=== PATIENT | female | born 1965 | race Caucasian/White ===

== ENCOUNTER 2017-01-30 13:59 | Emergency (ER) | payer MEDICAID ==
[~2017-01-30] VITALS: Ht 175.3 cm; Wt 145.9 kg
[~2017-01-30 13:59] MED LIST: ACET-1757 PO; ALBU2.5V11 NEB; AMOX1TAB64 PO; ASPI-621 PO; BISA10SU2 PR; BUDE10.2 INH; BUDE10.2 PO; CEPH-376 PO; CIPR500T87 PO; CLON0.5T PO; DOCU-30 PO; ENOX40SY4 SQ; ERTA1VIA IV; FLUC200T PO; GABA300C10 PO; GABA400C PO; HYDR12.58 PO; HYDR25TA6 PO; INSU100C5 SQ-INSULIN; INSU100I28 SQ-INSULIN; INSU100V5 SQ-INSULIN; INSU100V8 SQ; LISI40TA PO; LISI5TAB7 PO; LUBI8CAP3 PO; MERO1VIA3 IV; METF10002 PO; METH5TAB2 PO; NYST15PO9 TP; ONDA4TAB7 PO; OXYC-229 PO; OXYC-302 PO; OXYC1TAB7 PO; OXYC5TAB2 PO; PIPE4.5V6 IV; POLY17PO5 PO; ROSU20TA PO; ROSU40TA PO; ROSU5TAB PO; SERT100T PO; SITA100T PO; SULF1TAB23 PO; SULF1TAB3 PO; TIOT18CA INH; TIZA2CAP2 PO; TIZA2TAB PO
[2017-01-30 14:02] VITALS: BP 153/93
[2017-01-30 14:31] LABS: HEMOGLOBIN 13.2 g/dL (11.7-16.4)
[2017-01-30 14:42] LABS: BLOOD UREA NITROGEN 13 mg/dL (7-18)
== END 2017-01-30 18:18 | disposition left against medical advice (07) ==
LOC: ED 18:12
DX: M79.662 Pain in left lower leg (principal)
CPT/HCPCS: 36415; 80048; 82040; 85025

== ENCOUNTER 2017-04-01 19:20 | Emergency (ER) | payer MEDICAID ==
[~2017-04-01] VITALS: Ht 177.8 cm; Wt 145.5 kg
[~2017-04-01 19:20] MED LIST changes: +MERO1VIA15 IV; -MERO1VIA3 IV
[2017-04-01 19:24] VITALS: BP 169/87
[2017-04-01] MEDS ORDERED: LANTIS (19:54)
[2017-04-01] MEDS ORDERED: LISI40TA PO (19:54)
[2017-04-01] MEDS ORDERED: ONDANSETRON ODT 4 MG ONE (20:28)
[2017-04-01] MEDS ORDERED: ONDANSETRON ODT 4 MG PO ONE (20:30)
[2017-04-01 20:46] LABS: BLOOD UREA NITROGEN 13 mg/dL (7-18)
== END 2017-04-01 21:42 | disposition home or self-care (01) ==
LOC: ED 21:22
DX: S90.32XA Contusion of left foot, initial encounter (principal); E11.621 Type 2 diabetes mellitus with foot ulcer; I10 Essential (primary) hypertension; J44.9 Chronic obstructive pulmonary disease, unspecified; E78.5 Hyperlipidemia, unspecified; Z87.891 Personal history of nicotine dependence; X58.XXXA Exposure to other specified factors, initial encounter; Y93.89 Activity, other specified; Y99.8 Other external cause status; Y92.89 Other specified places as the place of occurrence of the external cause
CPT/HCPCS: 36415; 73630; 80048; 82040; 85025; 99285; Q0162

== ENCOUNTER → 2017-04-07 | Outpatient (CLI) | payer MEDICAID ==
[~2017-04-07] MED LIST changes: +LANTIS
== END | disposition home or self-care (01) ==
LOC: WOUND 12:41
PROVIDERS: ATTEND Surgery
DX: E11.621 Type 2 diabetes mellitus with foot ulcer (principal); L97.521 Non-pressure chronic ulcer of other part of left foot limited to breakdown of skin; L97.511 Non-pressure chronic ulcer of other part of right foot limited to breakdown of skin; J44.9 Chronic obstructive pulmonary disease, unspecified; E66.01 Morbid (severe) obesity due to excess calories; I10 Essential (primary) hypertension; E78.5 Hyperlipidemia, unspecified; Z68.43 Body mass index [BMI] 50.0-59.9, adult; E78.00 Pure hypercholesterolemia, unspecified; F41.9 Anxiety disorder, unspecified; F11.20 Opioid dependence, uncomplicated; Z87.891 Personal history of nicotine dependence; Z89.421 Acquired absence of other right toe(s)
CPT/HCPCS: 11042; 99215

== ENCOUNTER → 2017-04-10 | Outpatient (CLI) | payer MEDICAID | END | disposition home or self-care (01) | LOC: WOUND 15:27 | PROVIDERS: ATTEND Surgery | DX: E11.621 Type 2 diabetes mellitus with foot ulcer (principal); L97.521 Non-pressure chronic ulcer of other part of left foot limited to breakdown of skin; J44.9 Chronic obstructive pulmonary disease, unspecified; E66.01 Morbid (severe) obesity due to excess calories; Z68.43 Body mass index [BMI] 50.0-59.9, adult; I10 Essential (primary) hypertension; E78.5 Hyperlipidemia, unspecified; F11.20 Opioid dependence, uncomplicated; F41.9 Anxiety disorder, unspecified; E78.00 Pure hypercholesterolemia, unspecified; Z87.891 Personal history of nicotine dependence; Z89.421 Acquired absence of other right toe(s) | CPT/HCPCS: 99214 ==

== ENCOUNTER → 2017-04-17 | Outpatient (CLI) | payer MEDICAID | END | disposition home or self-care (01) | LOC: WOUND 12:45 | PROVIDERS: ATTEND Internal Medicine Cardiovascular Disease | DX: E11.621 Type 2 diabetes mellitus with foot ulcer (principal); L97.511 Non-pressure chronic ulcer of other part of right foot limited to breakdown of skin; L97.521 Non-pressure chronic ulcer of other part of left foot limited to breakdown of skin; J44.9 Chronic obstructive pulmonary disease, unspecified; E66.01 Morbid (severe) obesity due to excess calories; Z68.43 Body mass index [BMI] 50.0-59.9, adult; I10 Essential (primary) hypertension; E78.5 Hyperlipidemia, unspecified; F41.1 Generalized anxiety disorder; F11.20 Opioid dependence, uncomplicated; E78.00 Pure hypercholesterolemia, unspecified; Z87.891 Personal history of nicotine dependence; Z89.421 Acquired absence of other right toe(s) | CPT/HCPCS: 99214 ==

== ENCOUNTER → 2017-04-24 | Outpatient (CLI) | payer MEDICAID | END | disposition home or self-care (01) | LOC: WOUND 11:04 | PROVIDERS: ATTEND Physician Assistant | DX: E11.621 Type 2 diabetes mellitus with foot ulcer (principal); L97.521 Non-pressure chronic ulcer of other part of left foot limited to breakdown of skin; E66.01 Morbid (severe) obesity due to excess calories; E78.5 Hyperlipidemia, unspecified; I10 Essential (primary) hypertension; J44.9 Chronic obstructive pulmonary disease, unspecified; Z68.43 Body mass index [BMI] 50.0-59.9, adult; F41.9 Anxiety disorder, unspecified; F11.20 Opioid dependence, uncomplicated; Z87.891 Personal history of nicotine dependence; Z89.421 Acquired absence of other right toe(s); E78.00 Pure hypercholesterolemia, unspecified | CPT/HCPCS: 11042 ==

== ENCOUNTER → 2017-05-08 | Outpatient (CLI) | payer MEDICAID | END | disposition home or self-care (01) | LOC: WOUND 10:30 | PROVIDERS: ATTEND Physician Assistant | DX: E11.621 Type 2 diabetes mellitus with foot ulcer (principal); L97.521 Non-pressure chronic ulcer of other part of left foot limited to breakdown of skin; E66.01 Morbid (severe) obesity due to excess calories; E78.5 Hyperlipidemia, unspecified; J44.9 Chronic obstructive pulmonary disease, unspecified; I10 Essential (primary) hypertension; E78.00 Pure hypercholesterolemia, unspecified; F41.1 Generalized anxiety disorder; Z68.43 Body mass index [BMI] 50.0-59.9, adult; Z89.421 Acquired absence of other right toe(s); Z87.891 Personal history of nicotine dependence | CPT/HCPCS: 11042 ==

== ENCOUNTER → 2017-05-15 | Outpatient (CLI) | payer MEDICAID | END | disposition home or self-care (01) | LOC: WOUND 10:02 | PROVIDERS: ATTEND Physician Assistant | DX: T87.89 Other complications of amputation stump (principal); E11.621 Type 2 diabetes mellitus with foot ulcer; L97.521 Non-pressure chronic ulcer of other part of left foot limited to breakdown of skin; E66.01 Morbid (severe) obesity due to excess calories; E78.5 Hyperlipidemia, unspecified; I10 Essential (primary) hypertension; J44.9 Chronic obstructive pulmonary disease, unspecified; E78.00 Pure hypercholesterolemia, unspecified; F41.1 Generalized anxiety disorder; F11.20 Opioid dependence, uncomplicated; Z87.891 Personal history of nicotine dependence; Z68.43 Body mass index [BMI] 50.0-59.9, adult; Z89.421 Acquired absence of other right toe(s); Y83.5 Amputation of limb(s) as the cause of abnormal reaction of the patient, or of later complication, without mention of misadventure at the time of the procedure | CPT/HCPCS: 97597 ==

== ENCOUNTER → 2017-06-13 | Outpatient (CLI) | payer MEDICAID ==
[~2017-06-13] MED LIST changes: +DOCU-131 PO; -DOCU-30 PO; -LUBI8CAP3 PO; +LUBI8CAP4 PO
== END | disposition home or self-care (01) ==
LOC: CFH 11:14
PROVIDERS: ATTEND Internal Medicine
DX: R06.02 Shortness of breath (principal); R06.00 Dyspnea, unspecified; E11.621 Type 2 diabetes mellitus with foot ulcer
CPT/HCPCS: 71020

== ENCOUNTER → 2017-06-13 | Outpatient (CLI) | payer MEDICAID ==
[~2017-06-13] MED LIST changes: -OXYC-229 PO; +OXYC-307 PO; +SULF-169 PO; -SULF1TAB3 PO
== END | disposition home or self-care (01) ==
LOC: WOUND 10:27
PROVIDERS: ATTEND Internal Medicine
DX: E11.621 Type 2 diabetes mellitus with foot ulcer (principal); L97.521 Non-pressure chronic ulcer of other part of left foot limited to breakdown of skin; E66.01 Morbid (severe) obesity due to excess calories; I10 Essential (primary) hypertension; Z68.43 Body mass index [BMI] 50.0-59.9, adult; J44.9 Chronic obstructive pulmonary disease, unspecified; F41.1 Generalized anxiety disorder; E78.00 Pure hypercholesterolemia, unspecified; Z87.891 Personal history of nicotine dependence; Z89.421 Acquired absence of other right toe(s)
CPT/HCPCS: 11042

== ENCOUNTER → 2017-06-20 | Outpatient (CLI) | payer MEDICAID | END | disposition home or self-care (01) | LOC: WOUND 08:42 | PROVIDERS: ATTEND Internal Medicine | DX: E11.621 Type 2 diabetes mellitus with foot ulcer (principal); L97.521 Non-pressure chronic ulcer of other part of left foot limited to breakdown of skin; E66.01 Morbid (severe) obesity due to excess calories; J44.9 Chronic obstructive pulmonary disease, unspecified; F41.1 Generalized anxiety disorder; E78.5 Hyperlipidemia, unspecified; I11.9 Hypertensive heart disease without heart failure; Z68.43 Body mass index [BMI] 50.0-59.9, adult; F11.20 Opioid dependence, uncomplicated; Z87.891 Personal history of nicotine dependence; Z89.421 Acquired absence of other right toe(s) | CPT/HCPCS: 11043 ==

== ENCOUNTER → 2017-06-27 | Outpatient (CLI) | payer MEDICAID | END | disposition home or self-care (01) | LOC: WOUND 09:23 | PROVIDERS: ATTEND Internal Medicine | DX: E11.621 Type 2 diabetes mellitus with foot ulcer (principal); L97.521 Non-pressure chronic ulcer of other part of left foot limited to breakdown of skin; E66.01 Morbid (severe) obesity due to excess calories; I10 Essential (primary) hypertension; J44.9 Chronic obstructive pulmonary disease, unspecified; E78.00 Pure hypercholesterolemia, unspecified; F41.9 Anxiety disorder, unspecified; Z89.421 Acquired absence of other right toe(s); E78.5 Hyperlipidemia, unspecified; I11.9 Hypertensive heart disease without heart failure; Z68.43 Body mass index [BMI] 50.0-59.9, adult | CPT/HCPCS: 11042 ==

== ENCOUNTER → 2017-06-30 | Outpatient (CLI) | payer MEDICAID | END | disposition home or self-care (01) | LOC: WOUND 09:44 | PROVIDERS: ATTEND Physician Assistant | DX: E11.621 Type 2 diabetes mellitus with foot ulcer (principal); L97.521 Non-pressure chronic ulcer of other part of left foot limited to breakdown of skin; E66.01 Morbid (severe) obesity due to excess calories; I10 Essential (primary) hypertension; F41.9 Anxiety disorder, unspecified; J44.9 Chronic obstructive pulmonary disease, unspecified; E78.5 Hyperlipidemia, unspecified; E78.00 Pure hypercholesterolemia, unspecified; F11.90 Opioid use, unspecified, uncomplicated; Z87.891 Personal history of nicotine dependence; Z68.43 Body mass index [BMI] 50.0-59.9, adult; Z89.421 Acquired absence of other right toe(s) | CPT/HCPCS: 29445 ==

== ENCOUNTER → 2017-07-04 | Outpatient (CLI) | payer MEDICAID | END | disposition home or self-care (01) | LOC: WOUND 08:10 | PROVIDERS: ATTEND Internal Medicine | DX: E11.621 Type 2 diabetes mellitus with foot ulcer (principal); L97.521 Non-pressure chronic ulcer of other part of left foot limited to breakdown of skin; E66.01 Morbid (severe) obesity due to excess calories; J44.9 Chronic obstructive pulmonary disease, unspecified; E78.5 Hyperlipidemia, unspecified; E78.00 Pure hypercholesterolemia, unspecified; I11.0 Hypertensive heart disease with heart failure; I50.9 Heart failure, unspecified; F41.1 Generalized anxiety disorder; Z89.421 Acquired absence of other right toe(s); Z68.43 Body mass index [BMI] 50.0-59.9, adult; Z87.891 Personal history of nicotine dependence | CPT/HCPCS: 99213 ==

== ENCOUNTER → 2017-07-07 | Outpatient (CLI) | payer MEDICAID ==
[~2017-07-07] MED LIST changes: +CANA100T PO
== END | disposition home or self-care (01) ==
LOC: WOUND 10:07
PROVIDERS: ATTEND Internal Medicine
DX: E11.621 Type 2 diabetes mellitus with foot ulcer (principal); L97.521 Non-pressure chronic ulcer of other part of left foot limited to breakdown of skin; E66.01 Morbid (severe) obesity due to excess calories; E78.00 Pure hypercholesterolemia, unspecified; E11.69 Type 2 diabetes mellitus with other specified complication; M86.172 Other acute osteomyelitis, left ankle and foot; I11.0 Hypertensive heart disease with heart failure; I50.9 Heart failure, unspecified; J44.9 Chronic obstructive pulmonary disease, unspecified; F41.1 Generalized anxiety disorder; Z89.429 Acquired absence of other toe(s), unspecified side; Z87.891 Personal history of nicotine dependence; Z68.43 Body mass index [BMI] 50.0-59.9, adult
CPT/HCPCS: 11044

== ENCOUNTER → 2017-07-11 | Outpatient (CLI) | payer MEDICAID | END | disposition home or self-care (01) | LOC: WOUND 14:49 | PROVIDERS: ATTEND Nurse Practitioner Family | DX: E11.621 Type 2 diabetes mellitus with foot ulcer (principal); L97.521 Non-pressure chronic ulcer of other part of left foot limited to breakdown of skin; E66.01 Morbid (severe) obesity due to excess calories; E11.69 Type 2 diabetes mellitus with other specified complication; E78.5 Hyperlipidemia, unspecified; E78.00 Pure hypercholesterolemia, unspecified; I50.9 Heart failure, unspecified; I11.0 Hypertensive heart disease with heart failure; J44.9 Chronic obstructive pulmonary disease, unspecified; M86.072 Acute hematogenous osteomyelitis, left ankle and foot; F41.1 Generalized anxiety disorder; Z68.43 Body mass index [BMI] 50.0-59.9, adult; Z87.891 Personal history of nicotine dependence | CPT/HCPCS: 99214 ==

== ENCOUNTER 2017-07-12 11:16 | Inpatient (IN) | payer MEDICAID ==
[~2017-07-12] VITALS: Ht 177.8 cm; Wt 138.2 kg
[~2017-07-12 11:16] MED LIST changes: -CANA100T PO
[2017-07-12] MEDS ORDERED: SODIUM CHLORIDE 0.9% 1,000ML IVBOLUS ONE (12:00)
[2017-07-12] MEDS ORDERED: PIPERACILLIN/TAZO/PMX 3.375GM 50 ML IV ONE (12:00)
[2017-07-12] MEDS ORDERED: SODIUM CHLORIDE FLUSH 10ML SYR IVF ONE (12:00)
[2017-07-12 12:24] LABS: HEMATOCRIT 43.4 % (34.6-47.8); HEMOGLOBIN 14.3 g/dL (11.7-16.4); WHITE BLOOD COUNT 12.7 x10^3/uL (3.4-10)
[2017-07-12 12:35] LABS: BLOOD UREA NITROGEN 17 mg/dL (7-18)
[2017-07-12] MEDS ORDERED: CANA100T PO (16:54)
[2017-07-12] MEDS ORDERED: PROMETHAZINE 25 MG/ML, 1ML IM PRN (17:30)
[2017-07-12] MEDS ORDERED: DEXTROSE 4 GM TAB.CHEW PO PRN (17:30)
[2017-07-12] MEDS ORDERED: morphine SULFATE 10 MG/ML, 1ML IVPush PRN (17:30)
[2017-07-12] MEDS ORDERED: DEXTROSE 50%, 50ML SYRINGE IVPush PRN (17:30)
[2017-07-12] MEDS ORDERED: GLUCAGON 1 MG IM PRN (17:30)
[2017-07-12] MEDS: SODIUM CHLORIDE 0.9% 1,000 ML IV SCH (17:57)
[2017-07-12 18:00] VITALS: BP 101/58
[2017-07-12] MEDS: ENOXAPARIN 40 MG/0.4 ML SQ SCH (18:00)
[2017-07-12] MEDS: METHADONE 10 MG TABLET PO SCH (18:26)
[2017-07-12] MEDS: NICOTINE 14MG/24 HR PATCH.TD24 TD SCH (18:27)
[2017-07-12 20:00] VITALS: BP 113/66
[2017-07-12] MEDS: INSULIN ASPART 100 UNITS/ML, PEN SQ-INSULIN SCH (21:00)
[2017-07-12] MEDS: GABAPENTIN 400 MG CAPSULE PO SCH (21:51)
[2017-07-12] MEDS: SODIUM CHLORIDE FLUSH 10ML SYR IVF SCH (22:25)
[2017-07-12] MEDS: ATORVASTATIN 80 MG TABLET PO SCH (22:25)
[2017-07-12] MEDS: LISINOPRIL 20 MG TABLET PO SCH (22:26)
[2017-07-13] VITALS: BP 97/62
[2017-07-13] MEDS: SODIUM CHLORIDE 0.9% 1,000 ML IV SCH ×2 (03:16→17:47)
[2017-07-13 03:17] VITALS: BP 128/71
[2017-07-13] MEDS: METHADONE 10 MG TABLET PO SCH ×3 (03:18→18:01)
[2017-07-13] MEDS ORDERED: ALBUTEROL/IPRATROPIUM 2.5MG/0.5MG, 3 ML NPPB PRN (03:30)
[2017-07-13 05:55] LABS: ASPARTATE AMINO TRANSFERASE 24 U/L (15-37); BLOOD UREA NITROGEN 21 mg/dL (7-18)
[2017-07-13 06:15] LABS: HEMATOCRIT 36.4 % (34.6-47.8); HEMOGLOBIN 11.7 g/dL (11.7-16.4)
[2017-07-13 06:47] VITALS: BP 95/64
[2017-07-13] MEDS: INSULIN ASPART 100 UNITS/ML, PEN SQ-INSULIN SCH ×4 (07:00→21:00)
[2017-07-13] MEDS ORDERED: SODIUM CHLORIDE 0.9%, 500ML IVBOLUS ONE ×3 (08:00→23:00)
[2017-07-13] MEDS ORDERED: LISINOPRIL 20 MG TABLET PO SCH (09:00)
[2017-07-13] MEDS: GABAPENTIN 400 MG CAPSULE PO SCH ×3 (09:18→22:05)
[2017-07-13] MEDS: SODIUM CHLORIDE FLUSH 10ML SYR IVF SCH ×2 (09:28→22:07)
[2017-07-13] MEDS: FLUTICASONE/VILANTEROL 100-25MCG/INH INH SCH (10:42)
[2017-07-13 10:53] VITALS: BP 119/73
[2017-07-13 10:58] LABS: C-REACTIVE PROTEIN, QUANT 2.2 mg/dL (0.02-0.49)
[2017-07-13] MEDS ORDERED: FENTANYL PF 100 MCG/2ML ONE ×3 (15:00→16:43)
[2017-07-13] MEDS ORDERED: PROPOFOL 10 MG/ML, 20ML ONE (15:26)
[2017-07-13] MEDS ORDERED: SUCCINYLCHOLINE 20 MG/ML, 10ML ONE (15:26)
[2017-07-13] MEDS ORDERED: ONDANSETRON 2MG/ML, 2ML ONE (15:26)
[2017-07-13] MEDS ORDERED: METOCLOPRAMIDE 5 MG/ML, 2ML ONE (15:26)
[2017-07-13] MEDS ORDERED: ROCURONIUM 10 MG/ML ONE (15:26)
[2017-07-13] MEDS ORDERED: PIPERACILLIN/TAZO/PMX 3.375GM 50 ML ONE (15:32)
[2017-07-13] MEDS ORDERED: LABETALOL 5MG/ML, 20ML IV PRN (16:00)
[2017-07-13] MEDS ORDERED: ONDANSETRON 2MG/ML, 2ML IVPush PRN (16:00)
[2017-07-13] MEDS ORDERED: PROMETHAZINE 25 MG/ML, 1ML IV PRN (16:00)
[2017-07-13] MEDS ORDERED: hydrALAzine 20 MG/ML, 1ML IV PRN (16:00)
[2017-07-13] MEDS ORDERED: OXYcodone 5 MG/5 ML ORAL.SOL UDC PO PRN (16:00)
[2017-07-13] MEDS ORDERED: FENTANYL PF 100 MCG/2ML IV PRN (16:00)
[2017-07-13] MEDS ORDERED: HYDROmorphone 1 MG/ML, 1ML ONE ×2 (16:37→16:43)
[2017-07-13] MEDS ORDERED: OXYcodone 5 MG/5 ML ORAL.SOL UDC ONE (16:38)
[2017-07-13] MEDS: HYDROmorphone 1 MG/ML, 1ML IV PRN ×2 (16:40→16:52)
[2017-07-13] MEDS: ENOXAPARIN 40 MG/0.4 ML SQ SCH (18:01)
[2017-07-13] MEDS: NICOTINE 14MG/24 HR PATCH.TD24 TD SCH (18:02)
[2017-07-13 19:38] VITALS: BP 99/66
[2017-07-13] MEDS: LISINOPRIL 20 MG TABLET PO SCH (19:59)
[2017-07-13] MEDS: PIPERACILLIN-TAZO-DEXTROSE,ISO 100 ML IV SCH (22:04)
[2017-07-13] MEDS: SENNA/DOCUSATE TABLET PO SCH (22:05)
[2017-07-13] MEDS: ATORVASTATIN 80 MG TABLET PO SCH (22:06)
[2017-07-14 00:29] VITALS: BP 95/64
[2017-07-14] MEDS: OXYcodone IR 5MG TABLET PO PRN (02:06)
[2017-07-14 03:26] VITALS: BP 142/81
[2017-07-14 05:22] LABS: HEMATOCRIT 33.7 % (34.6-47.8); WHITE BLOOD COUNT 10.7 x10^3/uL (3.4-10)
[2017-07-14 05:33] LABS: ASPARTATE AMINO TRANSFERASE 27 U/L (15-37); BLOOD UREA NITROGEN 17 mg/dL (7-18)
[2017-07-14] MEDS: PIPERACILLIN-TAZO-DEXTROSE,ISO 100 ML IV SCH ×2 (06:11→17:50)
[2017-07-14] MEDS: SODIUM CHLORIDE 0.9% 1,000 ML IV SCH (06:11)
[2017-07-14] MEDS: METHADONE 10 MG TABLET PO SCH ×3 (06:11→22:16)
[2017-07-14 06:30] VITALS: BP 108/68
[2017-07-14] MEDS: FLUTICASONE/VILANTEROL 100-25MCG/INH INH SCH (08:30)
[2017-07-14] MEDS: GABAPENTIN 400 MG CAPSULE PO SCH ×3 (08:30→22:14)
[2017-07-14] MEDS: SENNA/DOCUSATE TABLET PO SCH ×2 (08:30→22:14)
[2017-07-14] MEDS: INSULIN ASPART 100 UNITS/ML, PEN SQ-INSULIN SCH ×4 (08:31→22:17)
[2017-07-14] MEDS: SODIUM CHLORIDE FLUSH 10ML SYR IVF SCH ×2 (08:31→21:00)
[2017-07-14 14:08] VITALS: BP 115/72
[2017-07-14] MEDS: NICOTINE 14MG/24 HR PATCH.TD24 TD SCH (17:50)
[2017-07-14] MEDS: ENOXAPARIN 40 MG/0.4 ML SQ SCH (17:50)
[2017-07-14 19:02] VITALS: BP 96/58
[2017-07-14] MEDS: LISINOPRIL 20 MG TABLET PO SCH (21:00)
[2017-07-14] MEDS: ATORVASTATIN 80 MG TABLET PO SCH (22:15)
[2017-07-15 01:12] VITALS: BP 104/68
[2017-07-15] MEDS: PIPERACILLIN-TAZO-DEXTROSE,ISO 100 ML IV SCH ×3 (01:12→17:18)
[2017-07-15] MEDS: METHADONE 10 MG TABLET PO SCH ×3 (06:04→21:46)
[2017-07-15 06:44] LABS: HEMATOCRIT 31.1 % (34.6-47.8); HEMOGLOBIN 10.2 g/dL (11.7-16.4); WHITE BLOOD COUNT 7.2 x10^3/uL (3.4-10)
[2017-07-15 06:51] LABS: BLOOD UREA NITROGEN 15 mg/dL (7-18)
[2017-07-15 08:13] VITALS: BP 104/67
[2017-07-15] MEDS: INSULIN ASPART 100 UNITS/ML, PEN SQ-INSULIN SCH ×4 (08:22→21:45)
[2017-07-15] MEDS: SODIUM CHLORIDE FLUSH 10ML SYR IVF SCH ×2 (08:23→21:46)
[2017-07-15] MEDS: SENNA/DOCUSATE TABLET PO SCH ×2 (08:23→21:46)
[2017-07-15] MEDS: FLUTICASONE/VILANTEROL 100-25MCG/INH INH SCH (08:23)
[2017-07-15] MEDS: GABAPENTIN 400 MG CAPSULE PO SCH ×3 (08:23→21:47)
[2017-07-15 13:50] VITALS: BP 101/66
[2017-07-15] MEDS: ENOXAPARIN 40 MG/0.4 ML SQ SCH (17:18)
[2017-07-15] MEDS: NICOTINE 14MG/24 HR PATCH.TD24 TD SCH (17:19)
[2017-07-15 20:57] VITALS: BP 108/69
[2017-07-15] MEDS: LISINOPRIL 20 MG TABLET PO SCH (21:00)
[2017-07-15] MEDS: INSULIN DETEMIR 100 UNITS/ML, PEN SQ-INSULIN SCH (21:46)
[2017-07-15] MEDS: ATORVASTATIN 80 MG TABLET PO SCH (21:47)
[2017-07-16] MEDS: PIPERACILLIN-TAZO-DEXTROSE,ISO 100 ML IV SCH ×3 (01:07→17:35)
[2017-07-16 02:13] LABS: HEMATOCRIT 32.1 % (34.6-47.8); HEMOGLOBIN 10.4 g/dL (11.7-16.4); WHITE BLOOD COUNT 7.8 x10^3/uL (3.4-10)
[2017-07-16 02:26] LABS: BLOOD UREA NITROGEN 15 mg/dL (7-18)
[2017-07-16] MEDS: METHADONE 10 MG TABLET PO SCH ×3 (06:39→21:17)
[2017-07-16 06:48] VITALS: BP 102/69
[2017-07-16] MEDS: FLUTICASONE/VILANTEROL 100-25MCG/INH INH SCH (08:16)
[2017-07-16] MEDS: SENNA/DOCUSATE TABLET PO SCH ×2 (08:16→21:17)
[2017-07-16] MEDS: GABAPENTIN 400 MG CAPSULE PO SCH ×3 (08:16→21:17)
[2017-07-16] MEDS: INSULIN DETEMIR 100 UNITS/ML, PEN SQ-INSULIN SCH ×2 (08:17→21:16)
[2017-07-16] MEDS: SODIUM CHLORIDE FLUSH 10ML SYR IVF SCH ×2 (08:17→21:17)
[2017-07-16] MEDS: INSULIN ASPART 100 UNITS/ML, PEN SQ-INSULIN SCH ×4 (08:17→21:16)
[2017-07-16 14:35] VITALS: BP 123/76
[2017-07-16] MEDS: LACTOBACILLUS CHEW TABLET PO SCH ×2 (17:35→21:17)
[2017-07-16] MEDS: ENOXAPARIN 40 MG/0.4 ML SQ SCH (17:35)
[2017-07-16] MEDS: NICOTINE 14MG/24 HR PATCH.TD24 TD SCH (17:35)
[2017-07-16 20:47] VITALS: BP 105/66
[2017-07-16] MEDS: LISINOPRIL 20 MG TABLET PO SCH (21:00)
[2017-07-16] MEDS: DAPTOMYCIN IVPB SCH (21:17)
[2017-07-16] MEDS: SODIUM CHLORIDE 0.9% IVPB SCH (21:17)
[2017-07-17 00:59] VITALS: BP 119/78
[2017-07-17] MEDS: PIPERACILLIN-TAZO-DEXTROSE,ISO 100 ML IV SCH ×3 (01:57→17:58)
[2017-07-17 02:26] VITALS: BP 119/78
[2017-07-17] MEDS: METHADONE 10 MG TABLET PO SCH ×3 (06:22→21:58)
[2017-07-17 06:58] VITALS: BP 107/71
[2017-07-17 07:08] LABS: HEMATOCRIT 32.6 % (34.6-47.8); HEMOGLOBIN 10.7 g/dL (11.7-16.4); WHITE BLOOD COUNT 8.1 x10^3/uL (3.4-10)
[2017-07-17 07:12] LABS: ASPARTATE AMINO TRANSFERASE 18 U/L (15-37); BLOOD UREA NITROGEN 13 mg/dL (7-18)
[2017-07-17] MEDS: INSULIN DETEMIR 100 UNITS/ML, PEN SQ-INSULIN SCH ×2 (09:15→21:58)
[2017-07-17] MEDS: INSULIN ASPART 100 UNITS/ML, PEN SQ-INSULIN SCH ×4 (09:15→21:58)
[2017-07-17] MEDS: LACTOBACILLUS CHEW TABLET PO SCH ×3 (09:16→21:58)
[2017-07-17] MEDS: SENNA/DOCUSATE TABLET PO SCH ×2 (09:16→21:58)
[2017-07-17] MEDS: FLUTICASONE/VILANTEROL 100-25MCG/INH INH SCH (09:16)
[2017-07-17] MEDS: GABAPENTIN 400 MG CAPSULE PO SCH ×3 (09:16→21:59)
[2017-07-17] MEDS: SODIUM CHLORIDE FLUSH 10ML SYR IVF SCH ×2 (09:20→21:59)
[2017-07-17] MEDS: ONDANSETRON 2MG/ML, 2ML IVPush PRN ×2 (12:13→21:59)
[2017-07-17 13:33] VITALS: BP 120/75
[2017-07-17] MEDS: ENOXAPARIN 40 MG/0.4 ML SQ SCH (17:53)
[2017-07-17] MEDS: NICOTINE 14MG/24 HR PATCH.TD24 TD SCH (17:53)
[2017-07-17 19:42] VITALS: BP 91/57
[2017-07-17] MEDS: LISINOPRIL 20 MG TABLET PO SCH (21:00)
[2017-07-17] MEDS: DAPTOMYCIN IVPB SCH (21:59)
[2017-07-17] MEDS: SODIUM CHLORIDE 0.9% IVPB SCH (21:59)
[2017-07-18 00:46] VITALS: BP 106/70
[2017-07-18] MEDS: PIPERACILLIN-TAZO-DEXTROSE,ISO 100 ML IV SCH ×3 (01:25→17:09)
[2017-07-18] MEDS: METHADONE 10 MG TABLET PO SCH ×3 (05:36→21:17)
[2017-07-18 08:06] VITALS: BP 101/64
[2017-07-18] MEDS: FLUTICASONE/VILANTEROL 100-25MCG/INH INH SCH (08:24)
[2017-07-18] MEDS: SENNA/DOCUSATE TABLET PO SCH ×2 (08:25→21:17)
[2017-07-18] MEDS: LACTOBACILLUS CHEW TABLET PO SCH ×3 (08:25→21:17)
[2017-07-18] MEDS: INSULIN ASPART 100 UNITS/ML, PEN SQ-INSULIN SCH ×4 (08:25→21:17)
[2017-07-18] MEDS: GABAPENTIN 400 MG CAPSULE PO SCH ×3 (08:25→21:17)
[2017-07-18] MEDS: INSULIN DETEMIR 100 UNITS/ML, PEN SQ-INSULIN SCH ×2 (08:25→21:16)
[2017-07-18] MEDS: SODIUM CHLORIDE FLUSH 10ML SYR IVF SCH ×2 (08:28→21:17)
[2017-07-18 14:23] VITALS: BP 103/60
[2017-07-18] MEDS: ENOXAPARIN 40 MG/0.4 ML SQ SCH (17:09)
[2017-07-18] MEDS: NICOTINE 14MG/24 HR PATCH.TD24 TD SCH (17:09)
[2017-07-18 19:16] VITALS: BP 97/62
[2017-07-18] MEDS: LISINOPRIL 20 MG TABLET PO SCH (21:00)
[2017-07-18] MEDS: DAPTOMYCIN IVPB SCH (21:17)
[2017-07-18] MEDS: SODIUM CHLORIDE 0.9% IVPB SCH (21:17)
[2017-07-19] MEDS: PIPERACILLIN-TAZO-DEXTROSE,ISO 100 ML IV SCH ×3 (01:13→18:05)
[2017-07-19 01:37] VITALS: BP 104/66
[2017-07-19] MEDS: METHADONE 10 MG TABLET PO SCH ×3 (05:16→23:09)
[2017-07-19 07:45] VITALS: BP 93/59
[2017-07-19] MEDS: INSULIN ASPART 100 UNITS/ML, PEN SQ-INSULIN SCH ×4 (09:13→21:52)
[2017-07-19] MEDS: INSULIN DETEMIR 100 UNITS/ML, PEN SQ-INSULIN SCH ×2 (09:13→21:52)
[2017-07-19] MEDS: GABAPENTIN 400 MG CAPSULE PO SCH ×3 (09:14→21:50)
[2017-07-19] MEDS: SODIUM CHLORIDE FLUSH 10ML SYR IVF SCH ×2 (09:14→22:44)
[2017-07-19] MEDS: LACTOBACILLUS CHEW TABLET PO SCH ×3 (09:14→21:51)
[2017-07-19] MEDS: SENNA/DOCUSATE TABLET PO SCH ×2 (09:14→21:50)
[2017-07-19] MEDS: FLUTICASONE/VILANTEROL 100-25MCG/INH INH SCH (09:14)
[2017-07-19 14:32] VITALS: BP 92/57
[2017-07-19] MEDS: NICOTINE 14MG/24 HR PATCH.TD24 TD SCH (17:22)
[2017-07-19] MEDS: ENOXAPARIN 40 MG/0.4 ML SQ SCH (17:22)
[2017-07-19 19:36] VITALS: BP 104/67
[2017-07-19] MEDS: LISINOPRIL 20 MG TABLET PO SCH ×2 (21:00→21:51)
[2017-07-19] MEDS: DAPTOMYCIN IVPB SCH (22:44)
[2017-07-19] MEDS: SODIUM CHLORIDE 0.9% IVPB SCH (22:44)
[2017-07-20] MEDS: PIPERACILLIN-TAZO-DEXTROSE,ISO 100 ML IV SCH ×2 (01:40→08:47)
[2017-07-20 01:43] VITALS: BP 106/71
[2017-07-20 07:24] VITALS: BP 108/69
[2017-07-20] MEDS: OXYcodone IR 5MG TABLET PO PRN (08:46)
[2017-07-20] MEDS: FLUTICASONE/VILANTEROL 100-25MCG/INH INH SCH (08:46)
[2017-07-20] MEDS: INSULIN ASPART 100 UNITS/ML, PEN SQ-INSULIN SCH ×4 (08:47→21:05)
[2017-07-20] MEDS: INSULIN DETEMIR 100 UNITS/ML, PEN SQ-INSULIN SCH ×2 (08:47→21:05)
[2017-07-20] MEDS: GABAPENTIN 400 MG CAPSULE PO SCH ×3 (08:48→21:05)
[2017-07-20] MEDS: SENNA/DOCUSATE TABLET PO SCH ×2 (08:48→21:05)
[2017-07-20] MEDS: SODIUM CHLORIDE FLUSH 10ML SYR IVF SCH ×2 (08:48→21:06)
[2017-07-20] MEDS: LACTOBACILLUS CHEW TABLET PO SCH ×3 (08:48→21:05)
[2017-07-20] MEDS: METHADONE 10 MG TABLET PO SCH ×2 (14:30→22:05)
[2017-07-20] MEDS: ERTAPENEM 1 GM in SODIUM CHLORIDE 0.9% 50 ML IV SCH (14:30)
[2017-07-20 14:38] VITALS: BP 124/78
[2017-07-20] MEDS: ENOXAPARIN 40 MG/0.4 ML SQ SCH (18:00)
[2017-07-20] MEDS: NICOTINE 14MG/24 HR PATCH.TD24 TD SCH (18:08)
[2017-07-20 18:28] VITALS: BP 117/76
[2017-07-20] MEDS: LISINOPRIL 20 MG TABLET PO SCH (21:00)
[2017-07-20] MEDS: DAPTOMYCIN IVPB SCH (22:29)
[2017-07-20] MEDS: SODIUM CHLORIDE 0.9% IVPB SCH (22:29)
[2017-07-21 01:25] VITALS: BP 111/71
[2017-07-21] MEDS: METHADONE 10 MG TABLET PO SCH ×3 (06:07→22:02)
[2017-07-21 06:43] LABS: HEMATOCRIT 33.2 % (34.6-47.8); HEMOGLOBIN 10.8 g/dL (11.7-16.4); WHITE BLOOD COUNT 8.7 x10^3/uL (3.4-10)
[2017-07-21 06:50] LABS: BLOOD UREA NITROGEN 16 mg/dL (7-18)
[2017-07-21] MEDS: GABAPENTIN 400 MG CAPSULE PO SCH ×3 (08:10→22:01)
[2017-07-21] MEDS: LACTOBACILLUS CHEW TABLET PO SCH ×3 (08:10→20:26)
[2017-07-21] MEDS: SENNA/DOCUSATE TABLET PO SCH ×2 (08:10→20:26)
[2017-07-21] MEDS: FLUTICASONE/VILANTEROL 100-25MCG/INH INH SCH (08:10)
[2017-07-21] MEDS: INSULIN DETEMIR 100 UNITS/ML, PEN SQ-INSULIN SCH ×2 (08:11→20:27)
[2017-07-21] MEDS: SODIUM CHLORIDE FLUSH 10ML SYR IVF SCH ×2 (08:12→20:26)
[2017-07-21] MEDS: INSULIN ASPART 100 UNITS/ML, PEN SQ-INSULIN SCH ×4 (08:12→20:27)
[2017-07-21 08:50] VITALS: BP 120/78
[2017-07-21] MEDS: ERTAPENEM 1 GM in SODIUM CHLORIDE 0.9% 50 ML IV SCH (14:20)
[2017-07-21 14:46] VITALS: BP 121/77
[2017-07-21] MEDS: ENOXAPARIN 40 MG/0.4 ML SQ SCH (18:00)
[2017-07-21] MEDS: NICOTINE 14MG/24 HR PATCH.TD24 TD SCH (18:28)
[2017-07-21] MEDS: ONDANSETRON 2MG/ML, 2ML IVPush PRN (18:28)
[2017-07-21 19:33] VITALS: BP 118/72
[2017-07-21] MEDS: LISINOPRIL 20 MG TABLET PO SCH (20:25)
[2017-07-21] MEDS: DAPTOMYCIN IVPB SCH (22:02)
[2017-07-21] MEDS: SODIUM CHLORIDE 0.9% IVPB SCH (22:02)
[2017-07-22 01:17] VITALS: BP 101/65
[2017-07-22] MEDS: METHADONE 10 MG TABLET PO SCH ×3 (05:49→22:44)
[2017-07-22 08:10] VITALS: BP 108/73
[2017-07-22] MEDS: FLUTICASONE/VILANTEROL 100-25MCG/INH INH SCH (09:29)
[2017-07-22] MEDS: INSULIN ASPART 100 UNITS/ML, PEN SQ-INSULIN SCH ×4 (09:29→20:12)
[2017-07-22] MEDS: GABAPENTIN 400 MG CAPSULE PO SCH ×3 (09:30→20:13)
[2017-07-22] MEDS: SENNA/DOCUSATE TABLET PO SCH ×2 (09:30→20:13)
[2017-07-22] MEDS: LACTOBACILLUS CHEW TABLET PO SCH ×3 (09:30→20:13)
[2017-07-22] MEDS: SODIUM CHLORIDE FLUSH 10ML SYR IVF SCH ×2 (09:30→20:13)
[2017-07-22] MEDS: INSULIN DETEMIR 100 UNITS/ML, PEN SQ-INSULIN SCH ×2 (10:12→20:11)
[2017-07-22] MEDS: ERTAPENEM 1 GM in SODIUM CHLORIDE 0.9% 50 ML IV SCH (13:49)
[2017-07-22] MEDS: ONDANSETRON 2MG/ML, 2ML IVPush PRN (13:51)
[2017-07-22 16:21] VITALS: BP 114/74
[2017-07-22] MEDS: ENOXAPARIN 40 MG/0.4 ML SQ SCH (16:54)
[2017-07-22] MEDS: NICOTINE 14MG/24 HR PATCH.TD24 TD SCH (17:40)
[2017-07-22] MEDS ORDERED: CALCIUM CARBONATE 500 MG TAB.CHEW PO ONE (18:30)
[2017-07-22] MEDS: LISINOPRIL 20 MG TABLET PO SCH (20:14)
[2017-07-22 20:16] VITALS: BP 117/74
[2017-07-22] MEDS: SODIUM CHLORIDE 0.9% IVPB SCH (23:42)
[2017-07-22] MEDS: DAPTOMYCIN IVPB SCH (23:42)
[2017-07-23 02:08] VITALS: BP 106/71
[2017-07-23] MEDS: METHADONE 10 MG TABLET PO SCH ×3 (06:01→22:17)
[2017-07-23 08:37] VITALS: BP 112/76
[2017-07-23] MEDS: SODIUM CHLORIDE FLUSH 10ML SYR IVF SCH ×2 (09:00→22:00)
[2017-07-23] MEDS: FLUTICASONE/VILANTEROL 100-25MCG/INH INH SCH (09:17)
[2017-07-23] MEDS: INSULIN ASPART 100 UNITS/ML, PEN SQ-INSULIN SCH ×4 (09:17→20:52)
[2017-07-23] MEDS: INSULIN DETEMIR 100 UNITS/ML, PEN SQ-INSULIN SCH ×2 (09:18→20:51)
[2017-07-23] MEDS: SENNA/DOCUSATE TABLET PO SCH ×2 (09:20→20:49)
[2017-07-23] MEDS: GABAPENTIN 400 MG CAPSULE PO SCH ×3 (09:20→20:49)
[2017-07-23] MEDS: LACTOBACILLUS CHEW TABLET PO SCH ×3 (09:20→20:49)
[2017-07-23 14:06] VITALS: BP 108/66
[2017-07-23] MEDS: ERTAPENEM 1 GM in SODIUM CHLORIDE 0.9% 50 ML IV SCH (14:30)
[2017-07-23] MEDS: ENOXAPARIN 40 MG/0.4 ML SQ SCH (16:57)
[2017-07-23] MEDS: NICOTINE 14MG/24 HR PATCH.TD24 TD SCH (18:40)
[2017-07-23] MEDS: ENOXAPARIN 30 MG/0.3 ML SQ SCH (18:43)
[2017-07-23 18:45] VITALS: BP 105/73
[2017-07-23] MEDS: LISINOPRIL 20 MG TABLET PO SCH (20:52)
[2017-07-23] MEDS: SODIUM CHLORIDE 0.9% IVPB SCH (23:38)
[2017-07-23] MEDS: DAPTOMYCIN IVPB SCH (23:38)
[2017-07-24 01:04] VITALS: BP 103/71
[2017-07-24 05:45] LABS: HEMATOCRIT 33.1 % (34.6-47.8); HEMOGLOBIN 10.8 g/dL (11.7-16.4)
[2017-07-24] MEDS: METHADONE 10 MG TABLET PO SCH ×2 (06:13→14:17)
[2017-07-24] MEDS: ENOXAPARIN 30 MG/0.3 ML SQ SCH (06:17)
[2017-07-24 06:25] LABS: ASPARTATE AMINO TRANSFERASE 28 U/L (15-37); BLOOD UREA NITROGEN 18 mg/dL (7-18)
[2017-07-24 07:23] VITALS: BP 112/74
[2017-07-24] MEDS: SENNA/DOCUSATE TABLET PO SCH (08:13)
[2017-07-24] MEDS: LACTOBACILLUS CHEW TABLET PO SCH (08:14)
[2017-07-24] MEDS: GABAPENTIN 400 MG CAPSULE PO SCH (08:15)
[2017-07-24] MEDS: FLUTICASONE/VILANTEROL 100-25MCG/INH INH SCH (08:16)
[2017-07-24] MEDS: INSULIN ASPART 100 UNITS/ML, PEN SQ-INSULIN SCH ×2 (08:17→12:03)
[2017-07-24] MEDS: INSULIN DETEMIR 100 UNITS/ML, PEN SQ-INSULIN SCH (08:18)
[2017-07-24] MEDS: SODIUM CHLORIDE FLUSH 10ML SYR IVF SCH (09:00)
[2017-07-24] MEDS ORDERED: NICO-486 TD (10:10)
[2017-07-24] MEDS ORDERED: ACID1TAB7 PO (10:10)
[2017-07-24] MEDS: ERTAPENEM 1 GM in SODIUM CHLORIDE 0.9% 50 ML IV SCH (14:17)
[2017-07-24 15:13] VITALS: BP 121/80
== END 2017-07-24 16:41 | disposition home or self-care (01) | DRG 854 ==
LOC: ED 13:38 → EDIP 15:17 → 4WST 17:44
PROVIDERS: ADMIT Hospitalist; ATTEND Internal Medicine
PROC: 0Y6N0ZB Detachment at Left Foot, Partial 2nd Ray, Open Approach (ICD-10-PCS; 2017-07-13)
PROC: 0Y6N0ZC Detachment at Left Foot, Partial 3rd Ray, Open Approach (ICD-10-PCS; 2017-07-13)
PROC: 0Y6N0Z9 Detachment at Left Foot, Partial 1st Ray, Open Approach (ICD-10-PCS; principal; 2017-07-13 15:30)
PROC: 02HV33Z Insertion of Infusion Device into Superior Vena Cava, Percutaneous Approach (ICD-10-PCS; 2017-07-15)
PROC: B5181ZA Fluoroscopy of Superior Vena Cava using Low Osmolar Contrast, Guidance (ICD-10-PCS; 2017-07-15)
DX: A41.9 Sepsis, unspecified organism (principal); J96.10 Chronic respiratory failure, unspecified whether with hypoxia or hypercapnia; E44.0 Moderate protein-calorie malnutrition; E11.21 Type 2 diabetes mellitus with diabetic nephropathy; E87.1 Hypo-osmolality and hyponatremia; Z68.42 Body mass index [BMI] 45.0-49.9, adult; M86.172 Other acute osteomyelitis, left ankle and foot; M86.672 Other chronic osteomyelitis, left ankle and foot; E11.40 Type 2 diabetes mellitus with diabetic neuropathy, unspecified; Z99.81 Dependence on supplemental oxygen; E78.5 Hyperlipidemia, unspecified; D63.8 Anemia in other chronic diseases classified elsewhere; E11.22 Type 2 diabetes mellitus with diabetic chronic kidney disease; N18.2 Chronic kidney disease, stage 2 (mild); G89.29 Other chronic pain; F41.9 Anxiety disorder, unspecified; I12.9 Hypertensive chronic kidney disease with stage 1 through stage 4 chronic kidney disease, or unspecified chronic kidney disease; J44.9 Chronic obstructive pulmonary disease, unspecified; F17.210 Nicotine dependence, cigarettes, uncomplicated; E66.01 Morbid (severe) obesity due to excess calories; E78.00 Pure hypercholesterolemia, unspecified; E11.621 Type 2 diabetes mellitus with foot ulcer; L97.529 Non-pressure chronic ulcer of other part of left foot with unspecified severity; E11.69 Type 2 diabetes mellitus with other specified complication; Z89.421 Acquired absence of other right toe(s); Z98.51 Tubal ligation status; R00.0 Tachycardia, unspecified; E11.65 Type 2 diabetes mellitus with hyperglycemia; Z88.1 Allergy status to other antibiotic agents; Z88.8 Allergy status to other drugs, medicaments and biological substances; Z86.73 Personal history of transient ischemic attack (TIA), and cerebral infarction without residual deficits
CPT/HCPCS: 36415; 36569; 71010; 76937; 77001; 80048; 80053; 81001; 82040; 82550; 82962; 83036; 83605; 83735; 84100; 84145; 85025; 85651; 86140; 87040; 87070; 87075; 87076; 87077; 87086; 87176; 87186; 87205; 99285; J0878; J1170; J1335; J1650; J1815; J2405; J2543; J2704; J3010; C1751; J0330; J2765; J7030; J7040

== ENCOUNTER 2017-10-21 12:25 | Emergency (ER) | payer MEDICAID ==
[~2017-10-21] VITALS: Ht 175.3 cm; Wt 137.2 kg
[~2017-10-21 12:25] MED LIST changes: +ACID1TAB7 PO; +CANA100T PO; +NICO-486 TD
[2017-10-21] MEDS ORDERED: ONDANSETRON ODT 8 MG PO ONE (14:00)
[2017-10-21] MEDS ORDERED: ONDANSETRON ODT 8 MG ONE (14:07)
[2017-10-21 14:15] VITALS: BP 129/78
[2017-10-21 14:19] LABS: BASOPHILS # (AUTO) 0.04 x10^3/uL (0-0.1); BASOPHILS % (AUTO) 0 % (0-1); EOSINOPHILS # (AUTO) 0.27 x10^3/uL (0-0.4); EOSINOPHILS % (AUTO) 3 % (1-7); LYMPHOCYTES % (AUTO) 17 % (22-44); MD NO; MEAN CORPUSCULAR HEMOGLOBIN 26.7 pg (27.0-34.8); MEAN CORPUSCULAR HGB CONC 32.9 g/dL (32.4-35.8); MEAN CORPUSCULAR VOLUME 81.2 fL (80-100); MEAN PLATELET VOLUME 8.8 fL (7.4-10.4); MONOCYTES # (AUTO) 0.43 x10^3/uL (0.2-0.8); MONOCYTES % (AUTO) 4 % (2-9); NEUTROPHILS # (AUTO) 7.56 x10^3/uL (1.8-6.8); NEUTROPHILS % (AUTO) 76 % (42-75); PLATELET COUNT 137 x10^3/uL (130-400); RED CELL DISTRIBUTION WIDTH 17.7 % (9.6-15.2)
[2017-10-21 14:30] LABS: ALBUMIN 3.4 g/dL (3.4-5.0); ANION GAP 6 mmol/L (5-15); CALCIUM 9.2 mg/dL (8.5-10.1); CHLORIDE 104 mmol/L (98-107)
[2017-10-21 14:34] LABS: ALANINE AMINOTRANSFERASE 34 U/L (12-78); ALKALINE PHOSPHATASE 125 U/L (45-117); BILIRUBIN,TOTAL 0.8 mg/dL (0.2-1.0); CREATININE 0.75 mg/dL (0.55-1.02)
== END 2017-10-21 15:07 | disposition home or self-care (01) ==
LOC: ED 14:30
DX: J44.9 Chronic obstructive pulmonary disease, unspecified (principal); I10 Essential (primary) hypertension; R51 Headache; E11.9 Type 2 diabetes mellitus without complications
CPT/HCPCS: 36415; 70450; 80053; 83690; 85025; 93005; 99285; Q0162

== ENCOUNTER 2017-12-18 07:51 | Inpatient (IN) | payer MEDICAID ==
[~2017-12-18] VITALS: Ht 175.3 cm; Wt 136.1 kg
[2017-12-18] MEDS ORDERED: SODIUM CHLORIDE FLUSH 10ML SYR IVF ONE (08:30)
[2017-12-18] MEDS ORDERED: SODIUM CHLORIDE 0.9% 1,000ML IVBOLUS ONE (08:30)
[2017-12-18] MEDS ORDERED: METOCLOPRAMIDE 5 MG/ML, 2ML IVPush ONE (08:30)
[2017-12-18] MEDS ORDERED: AMPICILLIN/SULBACTAM 3 GM IM ONE (08:30)
[2017-12-18] MEDS ORDERED: METOCLOPRAMIDE 5 MG/ML, 2ML ONE (08:47)
[2017-12-18 08:52] LABS: BASOPHILS # (AUTO) 0.03 x10^3/uL (0-0.1); BASOPHILS % (AUTO) 0 % (0-1); EOSINOPHILS # (AUTO) 0.37 x10^3/uL (0-0.4); EOSINOPHILS % (AUTO) 4 % (1-7); LYMPHOCYTES # (AUTO) 1.91 x10^3/uL (1-3.4); LYMPHOCYTES % (AUTO) 18 % (22-44); MD NO; MEAN CORPUSCULAR HEMOGLOBIN 27.6 pg (27.0-34.8); MEAN CORPUSCULAR HGB CONC 32.4 g/dL (32.4-35.8); MEAN PLATELET VOLUME 8.4 fL (7.4-10.4); MONOCYTES # (AUTO) 0.59 x10^3/uL (0.2-0.8); MONOCYTES % (AUTO) 6 % (2-9); NEUTROPHILS # (AUTO) 7.68 x10^3/uL (1.8-6.8); NEUTROPHILS % (AUTO) 73 % (42-75); PLATELET COUNT 191 x10^3/uL (130-400); RED BLOOD COUNT 4.82 x10^6/uL (3.82-5.3); RED CELL DISTRIBUTION WIDTH 17.3 % (9.6-15.2)
[2017-12-18 09:07] LABS: ALBUMIN 3.2 g/dL (3.4-5.0); ANION GAP 9 mmol/L (5-15); CALCIUM 8.9 mg/dL (8.5-10.1); CHLORIDE 106 mmol/L (98-107); CREATININE 0.86 mg/dL (0.55-1.02)
[2017-12-18] MEDS ORDERED: SODIUM CHLORIDE FLUSH 10ML SYR IVF PRN (10:00)
[2017-12-18] MEDS ORDERED: ACETAMINOPHEN 325 MG TABLET PO PRN (10:30)
[2017-12-18] MEDS ORDERED: ONDANSETRON 4 MG TABLET PO PRN (10:30)
[2017-12-18] MEDS ORDERED: OXYcodone IR 5MG TABLET PO PRN (10:30)
[2017-12-18] MEDS ORDERED: DOCUSATE 100 MG CAPSULE PO PRN (10:30)
[2017-12-18] MEDS ORDERED: ALBUTEROL SULFATE 2.5MG/0.5ML NEB PRN (10:30)
[2017-12-18] MEDS ORDERED: METHADONE 5 MG TABLET PO SCH (10:30)
[2017-12-18] MEDS: SODIUM CHLORIDE 0.9% 1,000 ML IV SCH ×2 (10:40→20:57)
[2017-12-18] MEDS ORDERED: DEXTROSE 50%, 50ML SYRINGE IVPush PRN (11:00)
[2017-12-18] MEDS ORDERED: DEXTROSE 4 GM TAB.CHEW PO PRN (11:00)
[2017-12-18] MEDS ORDERED: GLUCAGON 1 MG IM PRN (11:00)
[2017-12-18] MEDS: ENOXAPARIN 40 MG/0.4 ML SQ SCH ×2 (11:03→20:57)
[2017-12-18] MEDS ORDERED: OMNIPAQUE 350 MG/ML, 100ML BOTTLE ONE (11:31)
[2017-12-18 12:00] VITALS: BP 120/71
[2017-12-18] MEDS: INSULIN LISPRO 100 UNITS/ML, PEN SQ-INSULIN SCH ×3 (12:24→20:34)
[2017-12-18] MEDS: METHADONE 10 MG TABLET PO SCH ×2 (12:38→20:30)
[2017-12-18 13:15] VITALS: BP 110/60
[2017-12-18] MEDS ORDERED: NICOTINE 7 MG/24 HR PATCH.TD24 ONE (17:55)
[2017-12-18] MEDS ORDERED: NICOTINE 7 MG/24 HR PATCH.TD24 TD SCH (18:00)
[2017-12-18 20:01] VITALS: BP 115/66
[2017-12-18] MEDS: SODIUM CHLORIDE FLUSH 10ML SYR IVF SCH (20:30)
[2017-12-18] MEDS ORDERED: ATORVASTATIN 80 MG TABLET PO SCH (21:00)
[2017-12-19 01:47] VITALS: BP 121/70
[2017-12-19] MEDS: METHADONE 10 MG TABLET PO SCH ×2 (04:26→12:47)
[2017-12-19 04:47] LABS: BASOPHILS # (AUTO) 0.03 x10^3/uL (0-0.1); BASOPHILS % (AUTO) 0 % (0-1); EOSINOPHILS # (AUTO) 0.25 x10^3/uL (0-0.4); EOSINOPHILS % (AUTO) 3 % (1-7); LYMPHOCYTES # (AUTO) 2.57 x10^3/uL (1-3.4); LYMPHOCYTES % (AUTO) 28 % (22-44); MD NO; MEAN CORPUSCULAR HEMOGLOBIN 27.7 pg (27.0-34.8); MEAN CORPUSCULAR HGB CONC 32.8 g/dL (32.4-35.8); MEAN CORPUSCULAR VOLUME 84.5 fL (80-100); MEAN PLATELET VOLUME 8.4 fL (7.4-10.4); MONOCYTES % (AUTO) 7 % (2-9); NEUTROPHILS # (AUTO) 5.79 x10^3/uL (1.8-6.8); NEUTROPHILS % (AUTO) 63 % (42-75); PLATELET COUNT 170 x10^3/uL (130-400); RED BLOOD COUNT 4.22 x10^6/uL (3.82-5.3); RED CELL DISTRIBUTION WIDTH 17.3 % (9.6-15.2)
[2017-12-19 04:54] LABS: ALBUMIN 2.8 g/dL (3.4-5.0); ANION GAP 7 mmol/L (5-15); CALCIUM 8.7 mg/dL (8.5-10.1); CHLORIDE 106 mmol/L (98-107)
[2017-12-19 04:58] LABS: ALANINE AMINOTRANSFERASE 23 U/L (12-78); ALKALINE PHOSPHATASE 98 U/L (45-117); BILIRUBIN,TOTAL 0.5 mg/dL (0.2-1.0); CREATININE 0.79 mg/dL (0.55-1.02); TOTAL PROTEIN 6.9 g/dL (6.4-8.2)
[2017-12-19 06:48] VITALS: BP 105/68
[2017-12-19] MEDS: INSULIN LISPRO 100 UNITS/ML, PEN SQ-INSULIN SCH ×2 (07:16→11:32)
[2017-12-19] MEDS ORDERED: POLYETHYLENE GLYCOL 17 GM PACKET PO SCH (09:00)
[2017-12-19] MEDS ORDERED: SENNA/DOCUSATE TABLET PO SCH (09:00)
[2017-12-19] MEDS: SODIUM CHLORIDE FLUSH 10ML SYR IVF SCH (09:14)
[2017-12-19 12:41] VITALS: BP 109/67
[2017-12-19] MEDS ORDERED: LIDOCAINE 1%, 20ML ONE (13:48)
== END 2017-12-19 16:50 | disposition home or self-care (01) | DRG 155 ==
LOC: ED 08:29 → EDIP 09:43 → 3NW 11:57
PROVIDERS: ADMIT Internal Medicine; ATTEND Hospitalist
PROC: 0CB83ZX Excision of Right Parotid Gland, Percutaneous Approach, Diagnostic (ICD-10-PCS; principal; 2017-12-19)
DX: D11.0 Benign neoplasm of parotid gland (principal); J96.10 Chronic respiratory failure, unspecified whether with hypoxia or hypercapnia; E11.22 Type 2 diabetes mellitus with diabetic chronic kidney disease; E11.40 Type 2 diabetes mellitus with diabetic neuropathy, unspecified; E11.65 Type 2 diabetes mellitus with hyperglycemia; F11.20 Opioid dependence, uncomplicated; E66.9 Obesity, unspecified; E78.5 Hyperlipidemia, unspecified; F17.210 Nicotine dependence, cigarettes, uncomplicated; F41.1 Generalized anxiety disorder; I12.9 Hypertensive chronic kidney disease with stage 1 through stage 4 chronic kidney disease, or unspecified chronic kidney disease; L03.031 Cellulitis of right toe; M06.9 Rheumatoid arthritis, unspecified; J44.9 Chronic obstructive pulmonary disease, unspecified; N18.2 Chronic kidney disease, stage 2 (mild); M19.90 Unspecified osteoarthritis, unspecified site; G89.4 Chronic pain syndrome
CPT/HCPCS: 36415; 70491; 71045; 76942; 80048; 80053; 82040; 82962; 83605; 83735; 84100; 84145; 85025; 87040; 88172; 88173; 88177; 96372; 96374; J0295; J1650; J3490; Q0162; Q9967; J2765; J7030

== ENCOUNTER → 2017-12-27 | Outpatient (CLI) | payer MEDICAID | END | disposition home or self-care (01) | LOC: WOUND 09:21 | PROVIDERS: ATTEND Internal Medicine | DX: E11.621 Type 2 diabetes mellitus with foot ulcer (principal); L97.511 Non-pressure chronic ulcer of other part of right foot limited to breakdown of skin; E78.5 Hyperlipidemia, unspecified; J44.9 Chronic obstructive pulmonary disease, unspecified; E66.01 Morbid (severe) obesity due to excess calories; E78.00 Pure hypercholesterolemia, unspecified; F41.1 Generalized anxiety disorder; E11.22 Type 2 diabetes mellitus with diabetic chronic kidney disease; I12.9 Hypertensive chronic kidney disease with stage 1 through stage 4 chronic kidney disease, or unspecified chronic kidney disease; N18.2 Chronic kidney disease, stage 2 (mild); M06.9 Rheumatoid arthritis, unspecified; E11.40 Type 2 diabetes mellitus with diabetic neuropathy, unspecified; M19.90 Unspecified osteoarthritis, unspecified site; Z89.421 Acquired absence of other right toe(s); Z87.891 Personal history of nicotine dependence; Z68.41 Body mass index [BMI] 40.0-44.9, adult | CPT/HCPCS: 11042; 99214 ==

== ENCOUNTER 2018-01-02 10:23 | Inpatient (IN) | payer MEDICAID ==
[~2018-01-02] VITALS: Ht 175.3 cm; Wt 135.0 kg
[2018-01-02] MEDS ORDERED: OMEG1CAP23 PO (11:35)
[2018-01-02] MEDS ORDERED: INSU100V8 SQ (11:35)
[2018-01-02] MEDS ORDERED: DOXY50CA42 PO (11:36)
[2018-01-02] MEDS ORDERED: PIPERACILLIN/TAZO/PMX 3.375GM 50 ML IVPB ONE (12:30)
[2018-01-02] MEDS ORDERED: SODIUM CHLORIDE FLUSH 10ML SYR IVF ONE (12:30)
[2018-01-02 12:33] LABS: BASOPHILS # (AUTO) 0.02 x10^3/uL (0-0.1); BASOPHILS % (AUTO) 0 % (0-1); EOSINOPHILS # (AUTO) 0.27 x10^3/uL (0-0.4); EOSINOPHILS % (AUTO) 3 % (1-7); LYMPHOCYTES # (AUTO) 2.34 x10^3/uL (1-3.4); LYMPHOCYTES % (AUTO) 23 % (22-44); MD NO; MEAN CORPUSCULAR HGB CONC 32.9 g/dL (32.4-35.8); MEAN CORPUSCULAR VOLUME 84.9 fL (80-100); MEAN PLATELET VOLUME 8.5 fL (7.4-10.4); MONOCYTES # (AUTO) 0.57 x10^3/uL (0.2-0.8); MONOCYTES % (AUTO) 6 % (2-9); NEUTROPHILS # (AUTO) 7.05 x10^3/uL (1.8-6.8); NEUTROPHILS % (AUTO) 69 % (42-75); PLATELET COUNT 203 x10^3/uL (130-400); RED BLOOD COUNT 4.71 x10^6/uL (3.82-5.3); RED CELL DISTRIBUTION WIDTH 17.2 % (9.6-15.2)
[2018-01-02] MEDS ORDERED: PIPERACILLIN/TAZO/PMX 3.375GM 50 ML ONE (12:37)
[2018-01-02 12:43] LABS: ALBUMIN 3.4 g/dL (3.4-5.0); ANION GAP 6 mmol/L (5-15); CALCIUM 9.3 mg/dL (8.5-10.1); CHLORIDE 104 mmol/L (98-107); CREATININE 0.81 mg/dL (0.55-1.02)
[2018-01-02] MEDS ORDERED: ACETAMINOPHEN 500 MG TABLET PO PRN (15:00)
[2018-01-02 15:04] VITALS: BP 134/71
[2018-01-02] MEDS ORDERED: DOCUSATE 100 MG CAPSULE PO PRN (16:00)
[2018-01-02] MEDS ORDERED: LABETALOL 5MG/ML, 20ML IVPush PRN (16:00)
[2018-01-02] MEDS ORDERED: ONDANSETRON ODT 4 MG PO PRN (16:00)
[2018-01-02] MEDS ORDERED: ONDANSETRON 4 MG TABLET PO PRN (16:00)
[2018-01-02] MEDS ORDERED: OXYcodone IR 5MG TABLET PO PRN (16:00)
[2018-01-02] MEDS ORDERED: BISACODYL 10 MG SUPP PR PRN (16:00)
[2018-01-02] MEDS ORDERED: TEMPLATE NON-FORMULARY MED. (Insulin Aspart** (Novolog**) 0 UNITS) SQ-INSULIN SCH (16:00)
[2018-01-02] MEDS ORDERED: POLYETHYLENE GLYCOL 17 GM PACKET PO PRN (16:00)
[2018-01-02] MEDS ORDERED: TRAZODONE 50MG TABLET PO PRN (16:00)
[2018-01-02] MEDS: INSULIN LISPRO 100 UNITS/ML, PEN SQ-INSULIN SCH ×2 (16:11→21:15)
[2018-01-02] MEDS: NICOTINE 7 MG/24 HR PATCH.TD24 TD SCH (16:14)
[2018-01-02] MEDS: METHADONE 10 MG TABLET PO SCH ×2 (16:15→23:57)
[2018-01-02] MEDS: GABAPENTIN 400 MG CAPSULE PO SCH ×2 (16:15→22:17)
[2018-01-02] MEDS: ENOXAPARIN 40 MG/0.4 ML SQ SCH (16:15)
[2018-01-02 17:25] LABS: FREE T4 (FREE THYROXINE) 0.9 ng/dL (0.76-1.46); THYROID STIMULATING HORMONE 5.05 mIU/L (0.358-3.740)
[2018-01-02] MEDS: PIPERACILLIN/TAZO/PMX 3.375GM 50 ML IV SCH ×2 (18:28→23:57)
[2018-01-02] MEDS: LINEZOLID 600 MG TABLET PO SCH (18:28)
[2018-01-02] MEDS: ONDANSETRON 2MG/ML, 2ML IVPush PRN (18:34)
[2018-01-02 19:56] VITALS: BP 113/65
[2018-01-02] MEDS ORDERED: INSULIN LISPRO 100 UNITS/ML, PEN MEDIUM DOSE SS SQ-INSULIN SCH (21:00)
[2018-01-02] MEDS ORDERED: DOXYCYCLINE 100MG CAP ONE (22:11)
[2018-01-02] MEDS: ATORVASTATIN 80 MG TABLET PO SCH (22:16)
[2018-01-02] MEDS: FAMOTIDINE 20 MG TABLET PO SCH (22:17)
[2018-01-02] MEDS: INSULIN GLARGINE 100 UNITS/ML, PEN SQ-INSULIN SCH (22:17)
[2018-01-02] MEDS: DOXYCYCLINE 50MG CAPSULE PO SCH (22:35)
[2018-01-03 01:33] VITALS: BP 106/61
[2018-01-03] MEDS: OXYcodone IR 5MG TABLET PO PRN ×3 (02:40→18:24)
[2018-01-03 05:52] LABS: BASOPHILS # (AUTO) 0.06 x10^3/uL (0-0.1); BASOPHILS % (AUTO) 1 % (0-1); EOSINOPHILS # (AUTO) 0.22 x10^3/uL (0-0.4); EOSINOPHILS % (AUTO) 3 % (1-7); LYMPHOCYTES # (AUTO) 1.04 x10^3/uL (1-3.4); LYMPHOCYTES % (AUTO) 14 % (22-44); MD NO; MEAN CORPUSCULAR HEMOGLOBIN 27.7 pg (27.0-34.8); MEAN CORPUSCULAR HGB CONC 32.6 g/dL (32.4-35.8); MEAN CORPUSCULAR VOLUME 84.8 fL (80-100); MEAN PLATELET VOLUME 8.8 fL (7.4-10.4); MONOCYTES # (AUTO) 0.48 x10^3/uL (0.2-0.8); MONOCYTES % (AUTO) 7 % (2-9); NEUTROPHILS # (AUTO) 5.46 x10^3/uL (1.8-6.8); NEUTROPHILS % (AUTO) 75 % (42-75); PLATELET COUNT 168 x10^3/uL (130-400); RED BLOOD COUNT 4.41 x10^6/uL (3.82-5.3); RED CELL DISTRIBUTION WIDTH 17.3 % (9.6-15.2)
[2018-01-03 06:05] LABS: ANION GAP 9 mmol/L (5-15); CALCIUM 8.7 mg/dL (8.5-10.1); CHLORIDE 103 mmol/L (98-107); CREATININE 0.93 mg/dL (0.55-1.02)
[2018-01-03] MEDS: LINEZOLID 600 MG TABLET PO SCH ×2 (06:35→18:27)
[2018-01-03] MEDS: PIPERACILLIN/TAZO/PMX 3.375GM 50 ML IV SCH ×3 (06:36→18:23)
[2018-01-03] MEDS: INSULIN LISPRO 100 UNITS/ML, PEN SQ-INSULIN SCH ×4 (07:00→21:49)
[2018-01-03 07:22] VITALS: BP 98/65
[2018-01-03] MEDS: CANAGLIFLOZIN 100 MG HOMEMEDPO SCH (08:05)
[2018-01-03] MEDS: METHADONE 10 MG TABLET PO SCH ×2 (08:07→15:39)
[2018-01-03] MEDS: FAMOTIDINE 20 MG TABLET PO SCH ×2 (08:07→21:46)
[2018-01-03] MEDS: OMEGA-3/FISH OIL CAPSULE PO SCH (08:07)
[2018-01-03] MEDS: GABAPENTIN 400 MG CAPSULE PO SCH ×3 (08:07→21:46)
[2018-01-03] MEDS: DOXYCYCLINE 50MG CAPSULE PO SCH ×2 (09:16→21:46)
[2018-01-03 12:39] VITALS: BP 105/68
[2018-01-03] MEDS: NICOTINE 7 MG/24 HR PATCH.TD24 TD SCH (15:39)
[2018-01-03] MEDS: ENOXAPARIN 40 MG/0.4 ML SQ SCH (15:39)
[2018-01-03 20:06] VITALS: BP 96/66
[2018-01-03] MEDS: ATORVASTATIN 80 MG TABLET PO SCH (21:48)
[2018-01-03] MEDS: INSULIN GLARGINE 100 UNITS/ML, PEN SQ-INSULIN SCH (21:50)
[2018-01-04] MEDS: METHADONE 10 MG TABLET PO SCH ×3 (00:48→15:55)
[2018-01-04] MEDS: PIPERACILLIN/TAZO/PMX 3.375GM 50 ML IV SCH ×4 (00:48→18:21)
[2018-01-04] MEDS: ONDANSETRON 2MG/ML, 2ML IVPush PRN (00:59)
[2018-01-04 03:01] VITALS: BP 98/71
[2018-01-04] MEDS: INSULIN LISPRO 100 UNITS/ML, PEN SQ-INSULIN SCH ×5 (03:01→21:43)
[2018-01-04 05:52] LABS: BASOPHILS # (AUTO) 0.04 x10^3/uL (0-0.1); BASOPHILS % (AUTO) 1 % (0-1); EOSINOPHILS # (AUTO) 0.27 x10^3/uL (0-0.4); EOSINOPHILS % (AUTO) 4 % (1-7); LYMPHOCYTES # (AUTO) 1.34 x10^3/uL (1-3.4); LYMPHOCYTES % (AUTO) 19 % (22-44); MD NO; MEAN CORPUSCULAR HEMOGLOBIN 27.7 pg (27.0-34.8); MEAN CORPUSCULAR HGB CONC 32.8 g/dL (32.4-35.8); MEAN CORPUSCULAR VOLUME 84.4 fL (80-100); MONOCYTES # (AUTO) 0.62 x10^3/uL (0.2-0.8); MONOCYTES % (AUTO) 9 % (2-9); NEUTROPHILS % (AUTO) 68 % (42-75); PLATELET COUNT 159 x10^3/uL (130-400); RED BLOOD COUNT 4.22 x10^6/uL (3.82-5.3); RED CELL DISTRIBUTION WIDTH 16.9 % (9.6-15.2)
[2018-01-04 05:55] LABS: ANION GAP 4 mmol/L (5-15); CALCIUM 8.8 mg/dL (8.5-10.1); CHLORIDE 105 mmol/L (98-107); CREATININE 1.03 mg/dL (0.55-1.02)
[2018-01-04] MEDS: LINEZOLID 600 MG TABLET PO SCH ×2 (06:30→18:21)
[2018-01-04 08:11] VITALS: BP 108/71
[2018-01-04] MEDS: CANAGLIFLOZIN 100 MG HOMEMEDPO SCH (09:00)
[2018-01-04] MEDS ORDERED: PROPOFOL 10 MG/ML, 20ML ONE (09:45)
[2018-01-04] MEDS ORDERED: BUPIVACAINE/PF 0.5% ONE (09:46)
[2018-01-04] MEDS ORDERED: FENTANYL PF 250 MCG/5ML ONE (09:48)
[2018-01-04] MEDS ORDERED: MIDAZOLAM 1 MG/ML, 2ML ONE (09:50)
[2018-01-04] MEDS ORDERED: ACETAMINOPHEN 325 MG TABLET PO PRN (10:30)
[2018-01-04] MEDS ORDERED: HYDROmorphone 1 MG/ML, 1ML IV PRN (10:30)
[2018-01-04] MEDS ORDERED: OXYcodone 5 MG/5 ML ORAL.SOL UDC PO PRN (10:30)
[2018-01-04] MEDS ORDERED: FENTANYL PF 100 MCG/2ML IV PRN (10:30)
[2018-01-04] MEDS ORDERED: morphine SULFATE 10 MG/ML, 1ML IV PRN (10:30)
[2018-01-04] MEDS ORDERED: MEPERIDINE/PF 25MG/0.5ML IVPush PRN (10:30)
[2018-01-04] MEDS ORDERED: ONDANSETRON 2MG/ML, 2ML IVPush PRN (10:30)
[2018-01-04] MEDS ORDERED: LORazepam 2 MG/ML, 1ML IVPush PRN (10:30)
[2018-01-04] MEDS ORDERED: LABETALOL 5MG/ML, 20ML IV PRN (10:30)
[2018-01-04] MEDS ORDERED: PROMETHAZINE 25 MG/ML, 1ML IV PRN (10:30)
[2018-01-04] MEDS ORDERED: PROMETHAZINE 12.5 MG SUPP PR PRN (10:30)
[2018-01-04] MEDS ORDERED: ALBUTEROL SULFATE 2.5 MG/3 ML NPPB PRN (10:30)
[2018-01-04] MEDS ORDERED: hydrALAzine 20 MG/ML, 1ML IV PRN (10:30)
[2018-01-04] MEDS ORDERED: OXYcodone 5 MG/5 ML ORAL.SOL UDC ONE (10:47)
[2018-01-04] MEDS ORDERED: ACETAMINOPHEN 650 MG/20.3 ML UDC ONE (10:47)
[2018-01-04] MEDS: DOXYCYCLINE 50MG CAPSULE PO SCH ×2 (11:58→21:35)
[2018-01-04] MEDS: FAMOTIDINE 20 MG TABLET PO SCH ×2 (11:58→21:35)
[2018-01-04] MEDS: OMEGA-3/FISH OIL CAPSULE PO SCH (11:58)
[2018-01-04] MEDS: GABAPENTIN 400 MG CAPSULE PO SCH ×3 (11:58→21:35)
[2018-01-04 15:32] VITALS: BP 103/67
[2018-01-04] MEDS: NICOTINE 7 MG/24 HR PATCH.TD24 TD SCH (15:55)
[2018-01-04 19:27] VITALS: BP 100/69
[2018-01-04] MEDS: ATORVASTATIN 80 MG TABLET PO SCH (21:34)
[2018-01-04] MEDS: OXYcodone IR 5MG TABLET PO PRN (21:42)
[2018-01-04] MEDS: INSULIN GLARGINE 100 UNITS/ML, PEN SQ-INSULIN SCH (21:43)
[2018-01-05] MEDS: PIPERACILLIN/TAZO/PMX 3.375GM 50 ML IV SCH ×4 (00:24→16:17)
[2018-01-05] MEDS: METHADONE 10 MG TABLET PO SCH ×3 (00:24→15:32)
[2018-01-05 01:15] VITALS: BP 107/70
[2018-01-05 03:31] VITALS: BP 113/76
[2018-01-05] MEDS: ENOXAPARIN 40 MG/0.4 ML SQ SCH (03:39)
[2018-01-05] MEDS: LINEZOLID 600 MG TABLET PO SCH (06:06)
[2018-01-05 07:13] VITALS: BP 102/71
[2018-01-05] MEDS: CANAGLIFLOZIN 100 MG HOMEMEDPO SCH (07:34)
[2018-01-05] MEDS: DOXYCYCLINE 50MG CAPSULE PO SCH (08:26)
[2018-01-05] MEDS: OMEGA-3/FISH OIL CAPSULE PO SCH (08:27)
[2018-01-05] MEDS: INSULIN LISPRO 100 UNITS/ML, PEN SQ-INSULIN SCH ×3 (08:27→16:26)
[2018-01-05] MEDS: GABAPENTIN 400 MG CAPSULE PO SCH ×2 (08:27→15:32)
[2018-01-05] MEDS: FAMOTIDINE 20 MG TABLET PO SCH (08:27)
[2018-01-05 14:17] VITALS: BP 120/60
[2018-01-05] MEDS: NICOTINE 7 MG/24 HR PATCH.TD24 TD SCH (15:32)
[2018-01-05] MEDS ORDERED: CLIN300C8 PO (15:50)
[2018-01-05 16:29] VITALS: BP 117/73
== END 2018-01-05 16:45 | disposition home or self-care (01) | DRG 617 ==
LOC: ED 12:21 → EDIP 12:54 → 4NOR 14:21
PROVIDERS: ADMIT Hospitalist; ATTEND Hospitalist
PROC: 0LNV3ZZ Release Right Foot Tendon, Percutaneous Approach (ICD-10-PCS; 2018-01-04)
PROC: 0Y6R0Z0 Detachment at Right 2nd Toe, Complete, Open Approach (ICD-10-PCS; principal; 2018-01-04 09:30)
DX: E11.69 Type 2 diabetes mellitus with other specified complication (principal); M86.171 Other acute osteomyelitis, right ankle and foot; E11.22 Type 2 diabetes mellitus with diabetic chronic kidney disease; F11.20 Opioid dependence, uncomplicated; L97.516 Non-pressure chronic ulcer of other part of right foot with bone involvement without evidence of necrosis; E66.01 Morbid (severe) obesity due to excess calories; Z68.44 Body mass index [BMI] 60.0-69.9, adult; E11.621 Type 2 diabetes mellitus with foot ulcer; D63.8 Anemia in other chronic diseases classified elsewhere; E03.9 Hypothyroidism, unspecified; E78.5 Hyperlipidemia, unspecified; F17.200 Nicotine dependence, unspecified, uncomplicated; F41.1 Generalized anxiety disorder; G89.29 Other chronic pain; I12.9 Hypertensive chronic kidney disease with stage 1 through stage 4 chronic kidney disease, or unspecified chronic kidney disease; J44.9 Chronic obstructive pulmonary disease, unspecified; L03.031 Cellulitis of right toe; L60.0 Ingrowing nail; M19.90 Unspecified osteoarthritis, unspecified site; M06.9 Rheumatoid arthritis, unspecified; M20.41 Other hammer toe(s) (acquired), right foot; N18.2 Chronic kidney disease, stage 2 (mild); Z79.4 Long term (current) use of insulin; Z83.3 Family history of diabetes mellitus; Z98.51 Tubal ligation status; Z90.49 Acquired absence of other specified parts of digestive tract; Z90.89 Acquired absence of other organs; Z88.1 Allergy status to other antibiotic agents
CPT/HCPCS: 36415; 80048; 82040; 82962; 83036; 83605; 84439; 84443; 85025; 85651; 87040; 87070; 87075; 87077; 87147; 87186; 87205; 93005; 96365; 96366; J1650; J2250; J2405; J2543; J2704; J3010; J3490; Q0162; J1815

== ENCOUNTER → 2018-01-24 | Outpatient (CLI) | payer MEDICAID ==
[~2018-01-24] MED LIST changes: +CLIN300C8 PO; +DOXY50CA42 PO; +OMEG1CAP23 PO
== END | disposition home or self-care (01) ==
LOC: WOUND 10:34
PROVIDERS: ATTEND Internal Medicine
DX: E11.621 Type 2 diabetes mellitus with foot ulcer (principal); L97.411 Non-pressure chronic ulcer of right heel and midfoot limited to breakdown of skin; J44.9 Chronic obstructive pulmonary disease, unspecified; E78.00 Pure hypercholesterolemia, unspecified; M06.9 Rheumatoid arthritis, unspecified; F41.1 Generalized anxiety disorder; E03.9 Hypothyroidism, unspecified; E66.01 Morbid (severe) obesity due to excess calories; E11.69 Type 2 diabetes mellitus with other specified complication; M86.171 Other acute osteomyelitis, right ankle and foot; M19.90 Unspecified osteoarthritis, unspecified site; E11.40 Type 2 diabetes mellitus with diabetic neuropathy, unspecified; G89.4 Chronic pain syndrome; F17.210 Nicotine dependence, cigarettes, uncomplicated; F11.20 Opioid dependence, uncomplicated; Z90.49 Acquired absence of other specified parts of digestive tract; Z79.4 Long term (current) use of insulin; Z68.44 Body mass index [BMI] 60.0-69.9, adult
CPT/HCPCS: 11043

== ENCOUNTER 2018-03-10 21:49 | Inpatient (IN) | payer MEDICAID ==
[~2018-03-10] VITALS: Ht 175.3 cm; Wt 139.8 kg
[2018-03-10] MEDS ORDERED: INSU100V8 SQ (21:58)
[2018-03-10] MEDS ORDERED: GABA300C10 PO (21:58)
[2018-03-10] MEDS ORDERED: LISI-170 PO (21:58)
[2018-03-10] MEDS ORDERED: ROSU20TA PO (21:58)
[2018-03-10] MEDS ORDERED: METH-356 PO (21:58)
[2018-03-10] MEDS ORDERED: INSU100C5 SQ-INSULIN (21:58)
[2018-03-10] MEDS ORDERED: SODIUM CHLORIDE 0.9% 1,000ML IVBOLUS ONE (22:30)
[2018-03-10] MEDS ORDERED: SODIUM CHLORIDE FLUSH 10ML SYR IVF ONE (22:30)
[2018-03-10] MEDS ORDERED: FAMOTIDINE 20 MG/2 ML IVP ONE (22:30)
[2018-03-10] MEDS ORDERED: FAMOTIDINE 20 MG/2 ML ONE (22:38)
[2018-03-10 22:41] LABS: BASOPHILS # (AUTO) 0.04 x10^3/uL (0-0.1); BASOPHILS % (AUTO) 0 % (0-1); EOSINOPHILS # (AUTO) 0.22 x10^3/uL (0-0.4); EOSINOPHILS % (AUTO) 2 % (1-7); LYMPHOCYTES # (AUTO) 1.79 x10^3/uL (1-3.4); LYMPHOCYTES % (AUTO) 18 % (22-44); MD NO; MEAN CORPUSCULAR HEMOGLOBIN 26.8 pg (27.0-34.8); MEAN CORPUSCULAR HGB CONC 32.4 g/dL (32.4-35.8); MEAN CORPUSCULAR VOLUME 82.7 fL (80-100); MEAN PLATELET VOLUME 8.7 fL (7.4-10.4); MONOCYTES # (AUTO) 0.56 x10^3/uL (0.2-0.8); MONOCYTES % (AUTO) 6 % (2-9); NEUTROPHILS # (AUTO) 7.38 x10^3/uL (1.8-6.8); NEUTROPHILS % (AUTO) 74 % (42-75); PLATELET COUNT 169 x10^3/uL (130-400); RED BLOOD COUNT 5.04 x10^6/uL (3.82-5.3); RED CELL DISTRIBUTION WIDTH 16.3 % (9.6-15.2)
[2018-03-10 22:52] LABS: ALANINE AMINOTRANSFERASE 35 U/L (12-78); ALBUMIN 3.1 g/dL (3.4-5.0); ANION GAP 7 mmol/L (5-15); CHLORIDE 103 mmol/L (98-107); CREATININE 1.06 mg/dL (0.55-1.02)
[2018-03-10 22:54] LABS: ALKALINE PHOSPHATASE 109 U/L (45-117); BILIRUBIN,TOTAL 0.6 mg/dL (0.2-1.0); CREATINE KINASE, TOTAL 57 U/L (26-192); TOTAL PROTEIN 7.9 g/dL (6.4-8.2); TROPONIN I < 0.015 ng/mL (0.000-0.045)
[2018-03-10 22:59] LABS: INTERNATIONAL NORMALIZED RATIO 1.13 (0.93-1.1); PROTHROMBIN TIME 11.7 Seconds (9.6-11.5)
[2018-03-11 00:06] LABS: MICROSCOPIC INDICATED
[2018-03-11 00:21] LABS: CULTURE INDICATED? NO
[2018-03-11] MEDS ORDERED: ACETAMINOPHEN 500 MG TABLET ONE (01:50)
[2018-03-11] MEDS ORDERED: PROCHLORPERAZINE 5 MG/ML, 2ML ONE (01:50)
[2018-03-11] MEDS ORDERED: PROCHLORPERAZINE 5 MG/ML, 2ML IVPush ONE (02:00)
[2018-03-11] MEDS ORDERED: ACETAMINOPHEN 500 MG TABLET PO ONE (02:00)
[2018-03-11] MEDS ORDERED: ONDANSETRON ODT 4 MG PO ONE (03:00)
[2018-03-11] MEDS ORDERED: ONDANSETRON ODT 4 MG ONE (03:07)
[2018-03-11 03:45] VITALS: BP 142/69
[2018-03-11] MEDS ORDERED: OXYcodone IR 5MG TABLET PO PRN (04:00)
[2018-03-11] MEDS ORDERED: METOCLOPRAMIDE 5 MG/ML, 2ML IVPush PRN (04:00)
[2018-03-11] MEDS ORDERED: hydrALAzine 20 MG/ML, 1ML IVPush PRN (04:00)
[2018-03-11] MEDS ORDERED: ONDANSETRON 2MG/ML, 2ML IVPush PRN (04:00)
[2018-03-11] MEDS ORDERED: DOCUSATE 100 MG CAPSULE PO PRN (04:00)
[2018-03-11] MEDS ORDERED: POLYETHYLENE GLYCOL 17 GM PACKET PO PRN (04:00)
[2018-03-11] MEDS ORDERED: morphine SULFATE 10 MG/ML, 1ML IVPush PRN (04:00)
[2018-03-11] MEDS ORDERED: BISACODYL 10 MG SUPP PR PRN (04:00)
[2018-03-11] MEDS ORDERED: PROMETHAZINE 25 MG/ML, 1ML IM PRN (04:00)
[2018-03-11] MEDS: SODIUM CHLORIDE 0.9% 1,000 ML IV SCH ×3 (05:21→20:30)
[2018-03-11] MEDS: HEPARIN 5,000 UNITS/ML, 1ML SQ SCH ×3 (05:22→20:27)
[2018-03-11 05:34] LABS: FREE T4 (FREE THYROXINE) 0.99 ng/dL (0.76-1.46); THYROID STIMULATING HORMONE 5.24 mIU/L (0.358-3.740)
[2018-03-11 05:46] LABS: HEMOGLOBIN A1C 8.6 % (4.2-6.3)
[2018-03-11 07:02] LABS: TROPONIN I < 0.015 ng/mL (0.000-0.045)
[2018-03-11 08:45] VITALS: BP 135/73
[2018-03-11] MEDS: FLUTICASONE/VILANTEROL 200-25MCG/INH INH SCH (09:00)
[2018-03-11] MEDS ORDERED: METHADONE 10 MG TABLET PO SCH (09:00)
[2018-03-11] MEDS ORDERED: GABAPENTIN 300 MG CAPSULE PO SCH (09:00)
[2018-03-11] MEDS: METHADONE 10 MG TABLET PO SCH ×3 (09:04→20:27)
[2018-03-11] MEDS: LISINOPRIL 20 MG TABLET PO SCH (09:04)
[2018-03-11] MEDS: INSULIN LISPRO 100 UNITS/ML, PEN SQ-INSULIN SCH ×4 (09:05→20:28)
[2018-03-11] MEDS: GABAPENTIN 100 MG CAPSULE PO SCH ×2 (10:23→20:27)
[2018-03-11] MEDS ORDERED: MAGNESIUM SULFATE PMX 2GM/50ML 50 ML IV ONE (10:30)
[2018-03-11 13:13] LABS: TROPONIN I < 0.015 ng/mL (0.000-0.045)
[2018-03-11 15:22] VITALS: BP 93/62
[2018-03-11] MEDS: ACETAMINOPHEN 325 MG TABLET PO PRN (17:17)
[2018-03-11] MEDS: ONDANSETRON ODT 4 MG PO PRN (17:28)
[2018-03-11 19:26] VITALS: BP 95/62
[2018-03-11] MEDS: ATORVASTATIN 40 MG TABLET PO SCH (20:27)
[2018-03-11] MEDS: INSULIN GLARGINE 100 UNITS/ML, PEN SQ-INSULIN SCH (20:28)
[2018-03-11] MEDS ORDERED: GABAPENTIN 100 MG CAPSULE PO SCH (21:00)
[2018-03-12] MEDS: ACETAMINOPHEN 325 MG TABLET PO PRN (00:31)
[2018-03-12 02:31] VITALS: BP 93/55
[2018-03-12] MEDS: SODIUM CHLORIDE 0.9% 1,000 ML IV SCH (04:44)
[2018-03-12] MEDS: HEPARIN 5,000 UNITS/ML, 1ML SQ SCH ×4 (04:44→21:36)
[2018-03-12 05:36] LABS: CHLORIDE 107 mmol/L (98-107)
[2018-03-12 05:48] LABS: ALANINE AMINOTRANSFERASE 32 U/L (12-78); ALBUMIN 2.8 g/dL (3.4-5.0); ALKALINE PHOSPHATASE 88 U/L (45-117); ANION GAP 6 mmol/L (5-15); BILIRUBIN,TOTAL 0.5 mg/dL (0.2-1.0); CALCIUM 8.2 mg/dL (8.5-10.1); CHOL/HDL RATIO 4.2; CHOLESTEROL, TOTAL 134 mg/dL (140-239); CREATININE 0.66 mg/dL (0.55-1.02); HDL CHOL % 24 % (28-40); HDL CHOLESTEROL (DIRECT) 32 mg/dL (40-60); LDL CHOLESTEROL,CALCULATED 64 mg/dL (54-169); TOTAL PROTEIN 6.9 g/dL (6.4-8.2); TRIGLYCERIDES 192 mg/dL (50-200); VLDL CHOLESTEROL 38 mg/dL (0-25)
[2018-03-12 05:59] LABS: BASOPHILS # (AUTO) 0.03 x10^3/uL (0-0.1); BASOPHILS % (AUTO) 0 % (0-1); EOSINOPHILS # (AUTO) 0.22 x10^3/uL (0-0.4); EOSINOPHILS % (AUTO) 3 % (1-7); LYMPHOCYTES # (AUTO) 2.86 x10^3/uL (1-3.4); LYMPHOCYTES % (AUTO) 35 % (22-44); MD NO; MEAN CORPUSCULAR HEMOGLOBIN 27.3 pg (27.0-34.8); MEAN CORPUSCULAR HGB CONC 32.5 g/dL (32.4-35.8); MONOCYTES # (AUTO) 0.53 x10^3/uL (0.2-0.8); MONOCYTES % (AUTO) 7 % (2-9); NEUTROPHILS % (AUTO) 55 % (42-75); PLATELET COUNT 145 x10^3/uL (130-400); RED BLOOD COUNT 4.32 x10^6/uL (3.82-5.3); RED CELL DISTRIBUTION WIDTH 16.4 % (9.6-15.2)
[2018-03-12] MEDS: INSULIN LISPRO 100 UNITS/ML, PEN SQ-INSULIN SCH ×4 (07:00→21:34)
[2018-03-12 07:59] VITALS: BP 107/73
[2018-03-12] MEDS: FLUTICASONE/VILANTEROL 200-25MCG/INH INH SCH (09:00)
[2018-03-12] MEDS: METHADONE 10 MG TABLET PO SCH ×3 (09:12→21:31)
[2018-03-12] MEDS: GABAPENTIN 100 MG CAPSULE PO SCH ×2 (09:12→21:31)
[2018-03-12] MEDS: LISINOPRIL 20 MG TABLET PO SCH (09:12)
[2018-03-12 13:59] VITALS: BP 111/75
[2018-03-12] MEDS: SENNA/DOCUSATE TABLET PO SCH (16:20)
[2018-03-12 19:20] VITALS: BP 108/71
[2018-03-12] MEDS: ONDANSETRON ODT 4 MG PO PRN (21:30)
[2018-03-12] MEDS: ATORVASTATIN 40 MG TABLET PO SCH (21:31)
[2018-03-12] MEDS: INSULIN GLARGINE 100 UNITS/ML, PEN SQ-INSULIN SCH (21:34)
[2018-03-13 02:21] VITALS: BP 102/64
[2018-03-13] MEDS: HEPARIN 5,000 UNITS/ML, 1ML SQ SCH ×3 (04:00→20:00)
[2018-03-13] MEDS: DIPHENHYDRAMINE 25 MG CAPSULE PO PRN ×2 (04:03→21:50)
[2018-03-13 06:41] VITALS: BP 89/59
[2018-03-13] MEDS: INSULIN LISPRO 100 UNITS/ML, PEN SQ-INSULIN SCH ×4 (07:00→21:45)
[2018-03-13] MEDS: GABAPENTIN 100 MG CAPSULE PO SCH ×2 (08:01→21:36)
[2018-03-13] MEDS: METHADONE 10 MG TABLET PO SCH ×3 (08:02→21:37)
[2018-03-13] MEDS: FLUTICASONE/VILANTEROL 200-25MCG/INH INH SCH (08:02)
[2018-03-13] MEDS: LISINOPRIL 20 MG TABLET PO SCH (08:03)
[2018-03-13] MEDS: SENNA/DOCUSATE TABLET PO SCH (08:04)
[2018-03-13 08:26] VITALS: BP 113/74
[2018-03-13 12:36] VITALS: BP 104/62
[2018-03-13] MEDS: ONDANSETRON ODT 4 MG PO PRN (13:02)
[2018-03-13] MEDS: METOCLOPRAMIDE 10MG TABLET PO SCH ×2 (16:48→21:36)
[2018-03-13 19:36] VITALS: BP 98/65
[2018-03-13] MEDS: ATORVASTATIN 40 MG TABLET PO SCH (21:37)
[2018-03-13] MEDS: INSULIN GLARGINE 100 UNITS/ML, PEN SQ-INSULIN SCH (22:05)
[2018-03-14 01:47] VITALS: BP 114/75
[2018-03-14] MEDS: HEPARIN 5,000 UNITS/ML, 1ML SQ SCH ×2 (04:00→15:10)
[2018-03-14 07:10] VITALS: BP 107/61
[2018-03-14] MEDS: SENNA/DOCUSATE TABLET PO SCH (08:13)
[2018-03-14] MEDS: METHADONE 10 MG TABLET PO SCH ×2 (08:13→17:43)
[2018-03-14] MEDS: GABAPENTIN 100 MG CAPSULE PO SCH (08:14)
[2018-03-14] MEDS: METOCLOPRAMIDE 10MG TABLET PO SCH ×3 (08:14→17:43)
[2018-03-14] MEDS: LISINOPRIL 20 MG TABLET PO SCH ×2 (08:14→09:00)
[2018-03-14] MEDS: INSULIN LISPRO 100 UNITS/ML, PEN SQ-INSULIN SCH ×3 (08:15→16:00)
[2018-03-14] MEDS: FLUTICASONE/VILANTEROL 200-25MCG/INH INH SCH (08:16)
[2018-03-14 12:33] VITALS: BP 112/68
[2018-03-14] MEDS: ACETAMINOPHEN 325 MG TABLET PO PRN (15:10)
[2018-03-14] MEDS ORDERED: DOCU-131 PO (17:10)
[2018-03-14] MEDS ORDERED: METO10TA2 PO (17:10)
[2018-03-14] MEDS ORDERED: ONDA4TAB13 PO (17:10)
== END 2018-03-14 18:21 | disposition home or self-care (01) | DRG 683 ==
LOC: ED 23:12 → 3NE 03-11 02:46
PROVIDERS: ADMIT Internal Medicine; ATTEND Internal Medicine
DX: N17.0 Acute kidney failure with tubular necrosis (principal); E44.0 Moderate protein-calorie malnutrition; J96.10 Chronic respiratory failure, unspecified whether with hypoxia or hypercapnia; K31.84 Gastroparesis; Z68.42 Body mass index [BMI] 45.0-49.9, adult; E11.43 Type 2 diabetes mellitus with diabetic autonomic (poly)neuropathy; E78.5 Hyperlipidemia, unspecified; E86.0 Dehydration; F17.210 Nicotine dependence, cigarettes, uncomplicated; F41.1 Generalized anxiety disorder; I10 Essential (primary) hypertension; J44.9 Chronic obstructive pulmonary disease, unspecified; M06.9 Rheumatoid arthritis, unspecified; E66.9 Obesity, unspecified; G89.29 Other chronic pain; R61 Generalized hyperhidrosis; Z89.432 Acquired absence of left foot; Z79.4 Long term (current) use of insulin; Z83.3 Family history of diabetes mellitus; Z87.440 Personal history of urinary (tract) infections; Z98.51 Tubal ligation status
CPT/HCPCS: 36415; 71046; 80053; 80061; 81001; 82550; 82962; 83036; 83690; 83735; 84439; 84443; 84484; 85025; 85610; 85730; 87040; 93306; 96361; 96374; 96375; J1644; Q0162; J0780; J1815; J2765; J3475; J7030; Q0163; S0028

== ENCOUNTER 2018-09-16 13:16 | Emergency (ER) | payer MEDICAID ==
[~2018-09-16] VITALS: Ht 175.3 cm; Wt 140.5 kg
[~2018-09-16 13:16] MED LIST changes: +LISI-170 PO; +METH-356 PO; +METO10TA2 PO; +ONDA4TAB13 PO
[2018-09-16 13:18] VITALS: BP 148/81
== END 2018-09-16 13:45 | disposition home or self-care (01) ==
LOC: ED 13:25
DX: K02.9 Dental caries, unspecified (principal); I10 Essential (primary) hypertension; E11.9 Type 2 diabetes mellitus without complications; J44.9 Chronic obstructive pulmonary disease, unspecified; M06.9 Rheumatoid arthritis, unspecified; E66.01 Morbid (severe) obesity due to excess calories; F17.200 Nicotine dependence, unspecified, uncomplicated; Z68.42 Body mass index [BMI] 45.0-49.9, adult
CPT/HCPCS: 99283

== ENCOUNTER 2018-11-20 08:53 | Emergency (ER) | payer MEDICAID ==
[~2018-11-20] VITALS: Ht 175.3 cm; Wt 147.1 kg
[~2018-11-20 08:53] MED LIST changes: -ASPI-621 PO; +ASPI81TA45 PO; -HYDR12.58 PO; +HYDROCHLOROTH12.5 MG PO; -METH-356 PO; +METH10TA2 PO
[2018-11-20] MEDS ORDERED: PROMETHAZINE 25 MG/ML, 1ML ONE (09:49)
[2018-11-20] MEDS ORDERED: MAALOX/HYOSCYAMINE/LIDOCAINE 45 ML BTL ONE (09:49)
[2018-11-20] MEDS ORDERED: PROMETHAZINE 25 MG/ML, 1ML IM ONE (10:00)
[2018-11-20] MEDS ORDERED: MAALOX/HYOSCYAMINE/LIDOCAINE 45 ML BTL PO ONE (10:00)
--- NOTE | 2018-11-20 10:07 | NUR ---
PT MEDICATED FOR ABD PAIN AND NAUSEA AND THEN TO US VIA ARELIS. PT REPORTS NAUSEA NOT RELIEVED BY HER REGULAR 8MG ZOFRAN AND ABD PAIN. PT IS TAKING ABX FOR DENTAL INFECTION. HX OF NARCOTIC USE FOR CHRONIC PAIN. DENIES DIARRHEA. PT STATES SHE FELT LIKE HER ABD PAIN STARTED BEFORE SHE STARTED TAKING THE ABX. REPORT TO PEGGY AT THIS TIME.
--- NOTE | 2018-11-20 10:15 | NUR ---
REPORT FROM DANA WILSON.
--- NOTE | 2018-11-20 10:25 | NUR ---
Eli wagner in [facility] - 11/20/18 at 1040 by KASSY PT UP TO RESTROOM. URINE SAMPLE OBTAINED AND SENT TO LAB.
--- NOTE | 2018-11-20 10:40 | NUR ---
PT BACK FROM US. PT PRESENTS TO ED WITH GENERALIZED ABD PAIN AND NAUSEA. STARTED ABOUT 5 DAYS AGO AND HAS PROGRESSIVELY WORSEND. PT STATES HX OF CHRONIC NAUSEA DUE TO PAIN MEDICATION. PT STATES MEDICATION GIVEN BY STEVE HAVE RESLOVED PAIN AND NAUSEA AT THIS TIME. POC DISCUSSED. WILL CONTINUE TO MONITOR.
--- NOTE | 2018-11-20 11:00 | NUR ---
Lab at bedside to draw pt.
[2018-11-20 11:10] LABS: BASOPHILS # (AUTO) 0.01 x10^3/uL (0-0.1); BASOPHILS % (AUTO) 0 % (0-1); EOSINOPHILS # (AUTO) 0.12 x10^3/uL (0-0.4); EOSINOPHILS % (AUTO) 2 % (1-7); LYMPHOCYTES # (AUTO) 1.28 x10^3/uL (1-3.4); LYMPHOCYTES % (AUTO) 16 % (22-44); MD NO; MEAN CORPUSCULAR HEMOGLOBIN 27.3 pg (27.0-34.8); MEAN CORPUSCULAR HGB CONC 32.6 g/dL (32.4-35.8); MEAN CORPUSCULAR VOLUME 83.8 fL (80-100); MEAN PLATELET VOLUME 8.7 fL (7.4-10.4); MONOCYTES # (AUTO) 0.28 x10^3/uL (0.2-0.8); MONOCYTES % (AUTO) 4 % (2-9); NEUTROPHILS # (AUTO) 6.32 x10^3/uL (1.8-6.8); NEUTROPHILS % (AUTO) 79 % (42-75); PLATELET COUNT 142 x10^3/uL (130-400); RED CELL DISTRIBUTION WIDTH 17.5 % (9.6-15.2)
[2018-11-20 11:23] LABS: ALBUMIN 3.1 g/dL (3.4-5.0); ANION GAP 5 mmol/L (5-15); CALCIUM 9.2 mg/dL (8.5-10.1); CHLORIDE 107 mmol/L (98-107)
[2018-11-20 11:26] LABS: ALANINE AMINOTRANSFERASE 39 U/L (12-78); ALKALINE PHOSPHATASE 137 U/L (45-117); BILIRUBIN,TOTAL 0.8 mg/dL (0.2-1.0); TOTAL PROTEIN 7.9 g/dL (6.4-8.2)
[2018-11-20 11:35] VITALS: BP 124/63
--- NOTE | 2018-11-20 12:25 | NUR ---
PT GIVEN DC PAPERWORK. PT VERBALIZED UNDERSTANDING. PT AWARE TO FOLLOW UP WITH PCP NEEDED.
== END 2018-11-20 12:34 | disposition home or self-care (01) ==
LOC: ED 09:25
DX: R10.13 Epigastric pain (principal); R11.0 Nausea; R51 Headache; R42 Dizziness and giddiness; E11.65 Type 2 diabetes mellitus with hyperglycemia; E78.5 Hyperlipidemia, unspecified; J44.9 Chronic obstructive pulmonary disease, unspecified; F41.1 Generalized anxiety disorder; E78.00 Pure hypercholesterolemia, unspecified; M06.9 Rheumatoid arthritis, unspecified; G89.29 Other chronic pain; E66.01 Morbid (severe) obesity due to excess calories; Z68.42 Body mass index [BMI] 45.0-49.9, adult
CPT/HCPCS: 36415; 76700; 80053; 83690; 85025; 93005; 96372; 99284; J2550

== ENCOUNTER 2018-11-27 08:40 | Emergency (ER) | payer MEDICAID ==
[~2018-11-27] VITALS: Ht 175.3 cm; Wt 145.7 kg
[2018-11-27 08:44] VITALS: BP 161/87
--- NOTE | 2018-11-27 09:14 | NUR ---
PT WC'D TO ROOM 2 W/ C/O R KNEE PAIN STARTED YESTERDAY. PT STATES PAIN WHEN SHE PUTS WEIGHT ON IT. WHEN PT LYING DOWN PT DENIES PAIN. PAIN ON PALPATION. PT RESTING ON GURNEY. SUKHDEV. LC FRANCIS AT BEDSIDE. WARM BLANKET PROVIDED.
--- NOTE | 2018-11-27 09:55 | NUR ---
US AT BEDSIDE.
--- NOTE | 2018-11-27 10:57 | NUR ---
Patient/Caregiver given discharge instructions and they have confirmed that they understand the instructions. Patient ambulatory with steady gait.
== END 2018-11-27 10:58 | disposition home or self-care (01) ==
LOC: ED 10:14
DX: S86.211A Strain of muscle(s) and tendon(s) of anterior muscle group at lower leg level, right leg, initial encounter (principal); I10 Essential (primary) hypertension; E11.65 Type 2 diabetes mellitus with hyperglycemia; J44.9 Chronic obstructive pulmonary disease, unspecified; F41.1 Generalized anxiety disorder; G89.29 Other chronic pain; M06.9 Rheumatoid arthritis, unspecified; E66.01 Morbid (severe) obesity due to excess calories; Z68.42 Body mass index [BMI] 45.0-49.9, adult; X58.XXXA Exposure to other specified factors, initial encounter; Y93.89 Activity, other specified; Y92.89 Other specified places as the place of occurrence of the external cause; Y99.8 Other external cause status
CPT/HCPCS: 99284

== ENCOUNTER 2019-05-31 12:42 | Outpatient (CLI) | payer MEDICAID | END 2019-05-31 23:59 | disposition home or self-care (01) | LOC: CFH 12:42 | PROVIDERS: ATTEND Otolaryngology | DX: D11.0 Benign neoplasm of parotid gland (principal); K11.1 Hypertrophy of salivary gland; J32.3 Chronic sphenoidal sinusitis | CPT/HCPCS: 70491; Q9967 ==